=== PATIENT | female | born 1940 | race Caucasian/White ===

== ENCOUNTER → 2018-02-21 10:13 | Outpatient (CLI) | payer MEDICARE, OTHER, SELFPAY ==
--- NOTE | 2018-02-21 | DI.RAD.S_ITS ---
PROCEDURE: XR BONE LENGTH SCANOGRAM INDICATIONS: 77 year-old female with chronic low back pain. TECHNIQUE: A single frontal standing view of both lower extremities acquired, with measuring ruler situated between the legs. COMPARISON: None. FINDINGS: Right: Total leg length is 94.9 cm. There is moderate genu valgus. There is mild lateral femorotibial compartment knee joint degeneration. Left: Total leg length is 94.9 cm. There is mild genu valgus. IMPRESSION: 1. No leg length discrepancy. 2. Moderate right and mild left valgus alignment of the knee joints. Dictated by: Ezio Theodore M.D. on 02/21/2018 at 11:48 Approved by: Ezio Theodore M.D. on 02/21/2018 at 11:51
== END ==
PROVIDERS: Family Provider Internal Medicine; PCP Internal Medicine; Visit Provider Chiropractor
DX: M54.5 Low back pain (principal); G89.29 Other chronic pain; M21.062 Valgus deformity, not elsewhere classified, left knee; M21.061 Valgus deformity, not elsewhere classified, right knee
CPT/HCPCS: 77073

== ENCOUNTER → 2019-11-15 15:41 | Outpatient (CLI) | payer MEDICARE, OTHER, SELFPAY ==
--- NOTE | 2019-11-15 | DI.RAD.S_ITS ---
PROCEDURE: XR FOOT LT MIN 3V INDICATIONS: deformity foot TECHNIQUE: 3 views of the foot were acquired. COMPARISON: [facility], , XR FOOT RT MIN 3V, 11/15/2019, 15:18. FINDINGS: Bones: No fractures or dislocations. No suspicious bony lesions. Mild first MTP joint degeneration. Diffuse interphalangeal degenerative joint disease. Soft tissues: No tibiotalar joint effusion. Achilles tendon appears normal. IMPRESSION: Chronic degenerative changes as above No fracture Dictated by: Guido Lerma M.D. on 11/15/2019 at 16:43 Approved by: Guido Lerma M.D. on 11/15/2019 at 16:46
--- NOTE | 2019-11-15 | DI.RAD.S_ITS ---
PROCEDURE: XR KNEE RT 3V INDICATIONS: BI KNEES AND BI FEET TECHNIQUE: 3 views of the knee were acquired. COMPARISON: None. FINDINGS: Bones: No fractures or dislocations. No suspicious bony lesions. Scattered degenerative subchondral sclerosis and spurring. Mild tricompartmental joint space narrowing. Bulky osteophyte formation at the lateral compartment Soft tissues: Small joint effusion. No suspicious soft tissue calcifications. IMPRESSION: Mild-moderate right knee joint degeneration Dictated by: Guido Lerma M.D. on 11/15/2019 at 16:46 Approved by: Guido Lerma M.D. on 11/15/2019 at 16:47
--- NOTE | 2019-11-15 | DI.RAD.S_ITS ---
PROCEDURE: XR KNEE LT 3V INDICATIONS: BI KNEES AND BI FEET TECHNIQUE: 3 views of the knee were acquired. COMPARISON: None. FINDINGS: Bones: No fractures or dislocations. No suspicious bony lesions. Scattered degenerative subchondral sclerosis and spurring. Mild medial and lateral joint space narrowing. Mild patellar femoral joint space narrowing Soft tissues: No joint effusion. No suspicious soft tissue calcifications. IMPRESSION: Mild left knee joint degeneration Dictated by: Guido Lerma M.D. on 11/15/2019 at 16:42 Approved by: Guido Lerma M.D. on 11/15/2019 at 16:43
--- NOTE | 2019-11-15 | DI.RAD.S_ITS ---
PROCEDURE: XR FOOT RT MIN 3V INDICATIONS: deformity foot TECHNIQUE: 4 views of the foot were acquired. COMPARISON: None. FINDINGS: Bones: Osteoarthritic changes are noted throughout mid foot and forefoot joints particularly involving first and second TMT joints and first MTP joint. No fractures or dislocations. No suspicious bony lesions. Soft tissues: Mild soft tissue swelling over medial aspect of first MTP joint is seen. Mild soft tissue swelling over medial and dorsal aspect of first TMT joint is also noted. No tibiotalar joint effusion. Achilles tendon appears normal. IMPRESSION: Osteoarthritic changes dominal involving medial portion of the midfoot and forefoot as above. No acute fracture or dislocation. Dictated by: Porter Gomez M.D. on 11/15/2019 at 16:33 Approved by: Porter Gomez M.D. on 11/15/2019 at 16:39
== END ==
PROVIDERS: Family Provider Internal Medicine; PCP Internal Medicine; Referring Provider Family Medicine; Visit Provider Family Medicine
DX: M17.0 Bilateral primary osteoarthritis of knee (principal); M19.072 Primary osteoarthritis, left ankle and foot; M21.41 Flat foot [pes planus] (acquired), right foot
CPT/HCPCS: 73562; 73630

== ENCOUNTER 2022-01-29 13:00 | Outpatient (RCR) | payer MEDICARE, OTHER, SELFPAY ==
--- NOTE | 2021-12-23 16:45 | PT.OIE ---
Current Diagnoses Other specified arthritis, right knee (12/23/21) Bilateral primary osteoarthritis of knee (12/23/21) Osteoarthritis of knee, unspecified (12/23/21) Primary osteoarthritis, right ankle and foot (12/23/21) Primary osteoarthritis, left ankle and foot (12/23/21) Valgus deformity, not elsewhere classified, left knee (12/23/21) Valgus deformity, not elsewhere classified, unspecified knee (12/23/21) Flat foot [pes planus] (acquired), right foot (12/23/21) Unspecified acquired deformity of right lower leg (12/23/21) Unspecified acquired deformity of left lower leg (12/23/21) Low back pain, unspecified (12/23/21) Congenital deformity of feet, unspecified, unspecified foot (12/23/21) Visit Care Team Role Provider Type Sabrina Garcia PA-C Referring Provider Non-Staff Specialty: Medical Address: [address] [place] [address], [id number] Email: Leonardo Villafuerte DO Primary Care Provider Non-Staff Specialty: Family Practice Address: [address] [place] [address], [id number] Email: Adin Mcqueen MD Family Provider Physician Specialty: Internal Medicine Address: [address] [place] [address], [address], [id number] Email: [email or web address] AMY Comer Attending Provider Non-Staff Specialty: Family Practice Address: [address] [place] [address], [facility] [place] Email: Physical Therapy Initial Evaluation PT-OP-A Visit Information Start: 12/12/21 17:39 Freq: Status: Active Protocol: Document 12/23/21 11:23 LRN (Rec: 12/23/21 12:22 LRN [id number]) Out-Patient Physical Therapy Visit Information Visit Information Visit Type Initial Evaluation Visit Start Time 11:23 Visit Stop Time 12:20 Total Visit Minutes 57 Visit Number 1 Evaluation Information Evaluation Date 12/23/21 Precautions Precautions Arthritis, lumbar back pain, hypothyroid controlled with meds. PT-OP-B Current Condition Start: 12/12/21 17:39 Freq: Status: Active Protocol: Document 12/23/21 11:23 LRN (Rec: 12/23/21 12:22 LRN [id number]) Current Condition History of Current Condition Onset Date 2 yrs ago Current Complaints Blister/callus on R foot arch, causing R swann and core extruder knee pain History of Current Condition Pt reports arch fell in R foot 2 yrs ago, then the knee started to hurt (collapsing inward). Can now control the knee because she built her own support. She feels because the L leg is crooked it caused problems with the R foot. No problem with R foot pain unless standing. She doesn't feel her back pain is problem currently. She states she has had a lot of back pain through her life because her back is curved. She was wearing a soft back brace she purchased ([employer] soft brace) that she is not sure she likes, so she is waiting for another one order in the mail. Pt is primarily concerned of her feet and LE's. Prior Treatments and Tests Has tried different orthotics by several podiatrists. [facility] issued an orthotic with high ankle support but she couldn't wear it because it wasn't soft. 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 Future Testing and Treatments Planned Go back to [facility] to make something soft and lifted at the arch. Treatment Goals Patient/Caregiver Goals Wants to stabilize foot ( strengthen) and work on movement of hips due to R knee going in and collapse of arch in R foot. Prior Functional Status Baseline Function- ADL's Independent Baseline Function- Mobility Independent Baseline Function- Recreation/Hobbies Riding upright ex bike. Does trampoline exs, Does ball and weight exercise. Baseline Function- Other Does yardwork. Current Functional Impairments (Reported) Functional Limitations- ADL's Walks more slowly because it hurts to move feet (quick rotational turns). Functional Limitations- Mobility/Gait Not able to walk or hike. Functional Limitations- Recreation/ Stopped doing gym classes ( Hobbies weights, stand up ex's: lunges , squats, moving left & right) Personal Factors Other Personal Factors That May Effect Trying to get R AFO and a more Therapy/Recovery comfortable plantar arch support. Stomach problems affecting bladder, which limits her ability to walk. PT-OP-C Subjective Start: 12/12/21 17:39 Freq: Status: Active Protocol: Document 12/23/21 11:23 LRN (Rec: 12/23/21 12:22 LRN [id number]) Patient Questionnaires Foot & Ankle Ability Measure- ADL and Sports FAAM-ADL Score 52 FAAM-ADL Impairment 20 to 39% Impaired (Score 50- 66) Lower Extremity Functional Scale LEFS Score 48 LEFS Impairment 20 to 39% Impaired (Score 48- 62) OP-PT Pain Assessment Pain Assessment Grid Paper Pain Assessment Grid Completed Yes Location R foot Pain Location Details Pain at plantar aspect of foot Radiating Location With weightbearing PT-OP-J Posture/Palpation/Skin Start: 12/12/21 17:39 Freq: Status: Active Protocol: Document 12/23/21 11:23 LRN (Rec: 12/23/21 12:22 LRN [id number]) Posture Evaluation Position Standing Head/C-Spine Posture Forward Head Knee Posture (L) Genu Valgus,(R) Genu Valgus Ankle/Foot Posture (R) Pronated,(R) Calcaneal Inversion Foot Arch (L) Low Arch,(R) No Arch Comments Posture Comments Severe forward head, R shoulder retracted, increased lordosis, Knee valgus angle is 27 deg's right, 5 deg's left. PT-OP-K Range of Motion Start: 12/12/21 17:39 Freq: Status: Active Protocol: Document 12/23/21 11:23 LRN (Rec: 12/23/21 12:22 LRN [id number]) Hip Goniometric Range of Motion Hip Right Passive Hip ROM WFL No Straight Leg Raise 80 Abduction 10 Internal Rotation 25 External Rotation 15 Comments Extension lacks 5 deg's Left Passive Hip ROM WFL Yes Straight Leg Raise 90 Abduction 16 Internal Rotation 10 External Rotation 0 Comments Extension lacks 3 deg's Knee Goniometric Range of Motion Knee Right Knee ROM WFL No Patient Position Supine Flexion Active (degrees) 125 Extension Active (degrees) 16 Left Knee ROM WFL No Patient Position Supine Flexion Active (degrees) 131 Extension Active (degrees) 5 Ankle and Foot Goniometric Range of Motion Ankle and Foot Right Active Dorsiflexion with Knee Extended 7 Plantarflexion 43 Inversion 35 Eversion 30 Left Active Dorsiflexion with Knee Extended 7 Plantarflexion 60 Inversion 40 Eversion 32 PT-OP-M Strength Start: 12/12/21 17:39 Freq: Status: Active Protocol: Document 12/23/21 11:23 LRN (Rec: 12/23/21 12:22 LRN [id number]) Hip Strength Hip Manual Muscle Testing Right Flexion (L2) 5 Normal Extension (S1) 3 Fair Abduction 3- Fair- Adduction 5 Normal Left Flexion (L2) 5 Normal Extension (S1) 3 Fair Abduction 5 Normal Knee Strength Knee Manual Muscle Testing Right Flexion (S2) 3 Fair Extension (L3) 5 Normal Left Flexion (S2) 5 Normal Extension (L3) 5 Normal Ankle/Foot Strength Ankle and Foot Manual Muscle Testing Right Comments Generally 5/5 Left Comments Generally 5/5 PT-OP-Q Treatments Start: 12/12/21 17:39 Freq: Status: Active Protocol: Document 12/23/21 11:23 LRN (Rec: 12/23/21 12:22 LRN [id number]) Self-Care/Home Management Treatment Education Patient Education Joint Protection Other Education Discussed results of evaluation, goals, and plan of care (POC). Pt agreeable to goals and POC. Educated pt in potential for use of an offloading brace for her R knee for support and limiting valgus of the knee. PT-OP-T Assessment and Plan Start: 12/12/21 17:39 Freq: Status: Active Protocol: Document 12/23/21 11:23 LRN (Rec: 12/23/21 12:22 LRN [id number]) Physical Therapy Assessment Rehab Potential Rehabilitation Potential Fair Evaluation Complexity Number of Personal Factors/Comorbidities 1-2 Number of Body Systems Impaired 4 or More Clinical Presentation at Evaluation Evolving Impairments Impairments Activity Tolerance,Balance, Gait,Pain,Posture,ROM,Strength Goals Three Impairment Improve hip mobility & strength to improve stability with gait Impairment LEFS is 48/80 (20-39% impaired , score 48-62) FAAM score is 52 (20-39% impaired, 50-66) Hip strength: AB is 3-/5 R, 5/ 5 L. Hip PROM (sup) in deg's: Ext is lacking 5 deg's R, lacking 3 deg's L; AB is 10 R, 16 L; IR is 25 R, 10 L, ER is 15 R, 0 L Short Term Goal (STG) Pt will be educated in a HEP of hip mobility (Ext, AB, IR, ER) and strengthening ex's (AB , AD, ext). STG Duration 01/20/22 Catering Barista Goal (LTG) Improve strength and mobility of the hips with improved function per LEFS or FAAM score. LTG Duration 03/23/22 Two Impairment Improve knee strength & mobility to decrease R knee pain. Impairment Knee flexion - 3/5 R, 5/5 L; Extension is 5/5 bilaterally Knee AROM (sup) in deg's: 16- 125 right, 5-131 left. Short Term Goal (STG) Pt will be educated in a HEP of knee mobility (ext, R flex) and strengthening (R hamstring, medial>lateral) exercises. STG Duration 01/20/22 Catering Barista Goal (LTG) Decrease R knee pain with gait with improved knee strength and external support of R arch support and/or offloading knee brace. LTG Duration 03/23/22 One Impairment Lacks appropriate self care program. Short Term Goal (STG) Assist pt in obtaining an offloading brace for the R knee. STG Duration 01/16/22 Catering Barista Goal (LTG) Pt will be independent in a self care HEP to improve stability of the foot with strengthening exercise. LTG Duration 03/23/22 Assessment Summary Assessment Pt presents with obvious mechanical dysfunction of her R foot and bilateral knees, R> L. The pt's primary complaint is pain at the R foot causing her R knee to move into a valgus position and affecting her safe ability to turn around in her kitchen. She is currently working with a local pest control chemical technician to build a more comfortable plantar arch support for her R foot to support her ankle. In standing, the pt has a severe valgus of the R knee of 27 deg 's when weight bearing, and 5 deg's left. Pt might benefit from an Offloader knee brace to limit valgus at the R knee and reduce stress on the plantar aspect of the foot . The patient was very concerned about her LE strength and mobility; therefore specific assesment of her gait was deferred and will be assessed at her next visit. She has notable weakness of her hips and R hamstrings, but her ankle strength is good. Mobility is limited in her hips except for PSLR which the pt stretches daily. She lacks full knee extension and is limited with R knee flexion. Her ankle mobility is surprisingly quite good. She is slower than normal with 360 degree turning, but was able to perform the movement safely in both directions. The pt will benefit from skilled physical therapy to improve LE mobility & strength, gait & balance training, assisting pt in obtaining an offloader brace for the R knee and educating the pt on a HEP. Physical Therapy Plan Frequency and Duration Frequency of Treatment 2x/Week Plan of Care Start Date 12/23/21 Plan of Care End Date 03/23/22 Therapeutic Interventions Therapeutic Interventions Aquatic Therapy,Balance Training,Gait Training,Home Exercise Program,Manual Therapy,Neuromuscular Re- education,Patient/Caregiver Education,Self-Care/Home Management,Soft Tissue Mobilization,Therapeutic Activities,Therapeutic Exercises Modalities Cold Pack/Ice Massage,Hot Packs,Ultrasound Other Referrals/Consults Referrals/Consults Recommended Recommend a referral for an Offloader knee brace to limit valgus at the R knee and reduce stress on the plantar aspect of the foot. Next Visit Focus/Plan Next Note Type Treatment Note Next Visit Plan Gait and balance assessment. Discuss pool therapy Capo Hip strengthening (AB/AD/ Ext), R knee strengthening ( flex), core strengthening and as tolerated also in standing . ROM ex: capo hip ER/IR/AB; capo knee ext (R>L) and R knee flexion. General conditioning, possible use of lift to deweight R foot.
--- NOTE | 2021-12-23 16:45 | PT.OPPOC ---
Physical, Occupational & Speech Therapy At 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), right foot (12/23/21) Unspecified acquired deformity of right lower leg (12/23/21) Unspecified acquired deformity of left lower leg (12/23/21) Low back pain, unspecified (12/23/21) Congenital deformity of feet, unspecified, unspecified foot (12/23/21) Visit Care Team Role Provider Type Sabrina Garcia PA-C Referring Provider Non-Staff Specialty: Medical Address: [address] [place] [address], [id number] Email: Leonardo Villafuerte DO Primary Care Provider Non-Staff Specialty: Family Practice Address: [address] [place] [address], [address] Email: Adin Mcqueen MD Family Provider Physician Specialty: Internal Medicine Address: [address] [place] [address], [address], [address] Email: [email or web address] [email or web address] Comer Attending Provider Non-Staff Specialty: Family Practice Address: [address] [place] [address], [id number] Email: Plan Of Care PT-OP-T Assessment and Plan Start: 12/12/21 17:39 Freq: Status: Active Protocol: Document 12/23/21 11:23 LRN (Rec: 12/23/21 12:22 LRN [id number]) Physical Therapy Assessment Rehab Potential Rehabilitation Potential Fair Evaluation Complexity Number of Personal Factors/Comorbidities 1-2 Number of Body Systems Impaired 4 or More Clinical Presentation at Evaluation Evolving Impairments Impairments Activity Tolerance,Balance, Gait,Pain,Posture,ROM,Strength Goals Three Impairment Improve hip mobility & strength to improve stability with gait Impairment LEFS is 48/80 (20-39% impaired , score 48-62) FAAM score is 52 (20-39% impaired, 50-66) Hip strength: AB is 3-/5 R, 5/ 5 L. Hip PROM (sup) in deg's: Ext is lacking 5 deg's R, lacking 3 deg's L; AB is 10 R, 16 L; IR is 25 R, 10 L, ER is 15 R, 0 L Short Term Goal (STG) Pt will be educated in a HEP of hip mobility (Ext, AB, IR, ER) and strengthening ex's (AB , AD, ext). STG Duration 01/20/22 Assisted Goal (LTG) Improve strength and mobility of the hips with improved function per LEFS or FAAM score. LTG Duration 03/23/22 Two Impairment Improve knee strength & mobility to decrease R knee pain. Impairment Knee flexion - 3/5 R, 5/5 L; Extension is 5/5 bilaterally Knee AROM (sup) in deg's: 16- 125 right, 5-131 left. Short Term Goal (STG) Pt will be educated in a HEP of knee mobility (ext, R flex) and strengthening (R hamstring, medial>lateral) exercises. STG Duration 01/20/22 Assisted Goal (LTG) Decrease R knee pain with gait with improved knee strength and external support of R arch support and/or offloading knee brace. LTG Duration 03/23/22 One Impairment Lacks appropriate self care program. Short Term Goal (STG) Assist pt in obtaining an offloading brace for the R knee. STG Duration 01/16/22 Bottle Tester Goal (LTG) Pt will be independent in a self care HEP to improve stability of the foot with strengthening exercise. LTG Duration 03/23/22 Assessment Summary Assessment Pt presents with obvious mechanical dysfunction of her R foot and bilateral knees, R> L. The pt's primary complaint is pain at the R foot causing her R knee to move into a valgus position and affecting her safe ability to turn around in her kitchen. She is currently working with a local fish net stringer to build a more comfortable plantar arch support for her R foot to support her ankle. In standing, the pt has a severe valgus of the R knee of 27 deg 's when weight bearing, and 5 deg's left. Pt might benefit from an Offloader knee brace to limit valgus at the R knee and reduce stress on the plantar aspect of the foot . The patient was very concerned about her LE strength and mobility; therefore specific assesment of her gait was deferred and will be assessed at her next visit. She has notable weakness of her hips and R hamstrings, but her ankle strength is good. Mobility is limited in her hips except for PSLR which the pt stretches daily. She lacks full knee extension and is limited with R knee flexion. Her ankle mobility is surprisingly quite good. She is slower than normal with 360 degree turning, but was able to perform the movement safely in both directions. The pt will benefit from skilled physical therapy to improve LE mobility & strength, gait & balance training, assisting pt in obtaining an offloader brace for the R knee and educating the pt on a HEP. Physical Therapy Plan Frequency and Duration Frequency of Treatment 2x/Week Plan of Care Start Date 12/23/21 Plan of Care End Date 03/23/22 Therapeutic Interventions Therapeutic Interventions Aquatic Therapy,Balance Training,Gait Training,Home Exercise Program,Manual Therapy,Neuromuscular Re- education,Patient/Caregiver Education,Self-Care/Home Management,Soft Tissue Mobilization,Therapeutic Activities,Therapeutic Exercises Modalities Cold Pack/Ice Massage,Hot Packs,Ultrasound Other Referrals/Consults Referrals/Consults Recommended Recommend a referral for an Offloader knee brace to limit valgus at the R knee and reduce stress on the plantar aspect of the foot. Next Visit Focus/Plan Next Note Type Treatment Note Next Visit Plan Gait and balance assessment. Discuss pool therapy Capo Hip strengthening (AB/AD/ Ext), R knee strengthening ( flex), core strengthening and as tolerated also in standing . ROM ex: capo hip ER/IR/AB; capo knee ext (R>L) and R knee flexion. General conditioning, possible use of lift to deweight R foot. Plan of Care Dates Plan of Care Start Date 12/23/21 Plan of Care End Date 03/23/22 Electronically Signed by: Camille Burris, PT 12/25/21 0525 If you are in agreement with this Plan of Care, please return a signed and dated copy. I have reviewed this Plan of Care and certify that the skilled therapy services above are required to meet the patient?s needs. Physician Signature Date Printed Name and Credentials Clinical Instructor Signature Printed Name and Credentials
--- NOTE | 2021-12-26 12:36 | PT.OTN ---
Current Diagnoses Other specified arthritis, right knee (12/26/21) Bilateral primary osteoarthritis of knee (12/26/21) Osteoarthritis of knee, unspecified (12/26/21) Primary osteoarthritis, right ankle and foot (12/26/21) Primary osteoarthritis, left ankle and foot (12/26/21) Valgus deformity, not elsewhere classified, left knee (12/26/21) Valgus deformity, not elsewhere classified, unspecified knee (12/26/21) Flat foot [pes planus] (acquired), right foot (12/26/21) Unspecified acquired deformity of right lower leg (12/26/21) Unspecified acquired deformity of left lower leg (12/26/21) Low back pain, unspecified (12/26/21) Congenital deformity of feet, unspecified, unspecified foot (12/26/21) Physical Therapy Treatment Note PT-OP-A Visit Information Start: 12/12/21 17:39 Freq: Status: Active Protocol: Document 12/26/21 11:24 LRN (Rec: 12/26/21 12:35 LRN [id number]) Out-Patient Physical Therapy Visit Information Visit Information Visit Type Treatment Note Visit Start Time 11:24 Visit Stop Time 12:10 Total Visit Minutes 46 Visit Number 2 Evaluation Information Evaluation Date 12/23/21 Precautions Precautions Arthritis, lumbar back pain, hypothyroid controlled with meds. 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 Can now control the knee because she built her own support. She feels because the L leg is crooked it caused problems with the R foot. No problem with R foot pain unless standing. She doesn't feel her back pain is problem currently. She states she has had a lot of back pain through her life because her back is curved. She was wearing a soft back brace she purchased ([employer] brace) that she is not sure she likes, so she is waiting for another one order in the mail. Pt is primarily concerned of her feet and LE's. Prior Treatments and Tests Has tried different orthotics by several podiatrists. [facility] issued an orthotic with high ankle support but she couldn't wear it because it wasn't soft. 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 Future Testing and Treatments Planned Go back to [facility] to make something soft and lifted at the arch. Treatment Goals Patient/Caregiver Goals Wants to stabilize foot ( strengthen) and work on movement of hips due to R knee going in and collapse of arch in R foot. Prior Functional Status Baseline Function- ADL's Independent Baseline Function- Mobility Independent Baseline Function- Recreation/Hobbies Riding upright ex bike. Does trampoline exs, Does ball and weight exercise. Baseline Function- Other Does yardwork. Current Functional Impairments (Reported) Functional Limitations- ADL's Walks more slowly because it hurts to move feet (quick rotational turns). Functional Limitations- Mobility/Gait Not able to walk or hike. Functional Limitations- Recreation/ Stopped doing gym classes ( Hobbies weights, stand up ex's: lunges , squats, moving left & right) Personal Factors Other Personal Factors That May Effect Trying to get R AFO and a more Therapy/Recovery comfortable plantar arch support. Stomach problems affecting bladder, which limits her ability to walk. PT-OP-C Subjective Start: 12/12/21 17:39 Freq: Status: Active Protocol: Document 12/26/21 11:24 LRN (Rec: 12/26/21 12:35 LRN [id number]) OP-PT Subjective Patient Comments Patient Comments States she adjusted her insole and added a toe peice; therefore feels she can walk better and has no R foot or knee pain. OP-PT Pain Assessment Pain Assessment Grid Paper Pain Assessment Grid Completed No Location R knee Pain Location Details Medial L knee pain. Intensity 0 R foot Pain Location Details Pain at plantar aspect of foot Intensity 0 Radiating Location With weightbearing PT-OP-D Balance Start: 12/12/21 17:39 Freq: Status: Active Protocol: Document 12/26/21 11:24 LRN (Rec: 12/26/21 12:35 LRN [id number]) Roth Balance Assessment Evaluation Sitting to Standing Ability Independent w/out Hands Unsupported Stance Safely- 2 minutes Sitting Unsupported, Feet on Floor Safely- 2 minutes Standing to Sitting Ability Safely, Minimal Hand Use Transfer Ability Safely, Minimal Hand Use Unsupported Stance- Eyes Closed Safely, 10 seconds Unsupported Stance- Eyes Open Independent, 1 minute Reaching Forward Standing Safely, 5 inches Pick- Up Object From Floor Independent/Safe Look Behind Shoulder - Standing Turns Sideways Only Turning 360 Degrees Turns slowly, but safely Unsupported Stance, Alternating Feet on (I)- 8 Steps in 20 secs Stair Unsupported Tandem Stance Assist to Step-15 seconds Unilateral Leg Stance Unable,assist to not fall Total Score Roth Total Score (out of 56 points) 44 Roth Impairment Rating 20 to 39% Impaired (Score 34- 44) PT-OP-E Functional Tests Start: 12/12/21 17:39 Freq: Status: Active Protocol: Document 12/26/21 11:24 LRN (Rec: 12/26/21 12:35 LRN [id number]) Functional Tests Timed Up and Go (TUG) Score 13 TUG Impairment Rating 20 to <40% Impaired (Score 12- 13) PT-OP-G Mobility & Gait Start: 12/12/21 17:39 Freq: Status: Active Protocol: Document 12/26/21 11:24 LRN (Rec: 12/26/21 12:35 LRN [id number]) OP Gait Assessment Gait Gait Assistance Required: Independent Able to Maintain Weight Bearing Status Yes During Gait Assistive Devices Assistive Device None Factors Limiting Gait Function Factors Limiting Gait Function Limited Range of Motion Comments Gait Comments Severe valgus of the R knee, and R foot pronation is the limiting factor in the pt's gait deviation. PT-OP-J Posture/Palpation/Skin Start: 12/12/21 17:39 Freq: Status: Active Protocol: Document 12/23/21 11:23 LRN (Rec: 12/23/21 12:22 LRN [id number]) Posture Evaluation Position Standing Head/C-Spine Posture Forward Head Knee Posture (L) Genu Valgus,(R) Genu Valgus Ankle/Foot Posture (R) Pronated,(R) Calcaneal Inversion Foot Arch (L) Low Arch,(R) No Arch Comments Posture Comments Severe forward head, R shoulder retracted, increased lordosis, Knee valgus angle is 27 deg's right, 5 deg's left. PT-OP-K Range of Motion Start: 12/12/21 17:39 Freq: Status: Active Protocol: Document 12/23/21 11:23 LRN (Rec: 12/23/21 12:22 LRN [id number]) Hip Goniometric Range of Motion Hip Right Passive Hip ROM WFL No Straight Leg Raise 80 Abduction 10 Internal Rotation 25 External Rotation 15 Comments Extension lacks 5 deg's Left Passive Hip ROM WFL Yes Straight Leg Raise 90 Abduction 16 Internal Rotation 10 External Rotation 0 Comments Extension lacks 3 deg's Knee Goniometric Range of Motion Knee Right Knee ROM WFL No Patient Position Supine Flexion Active (degrees) 125 Extension Active (degrees) 16 Left Knee ROM WFL No Patient Position Supine Flexion Active (degrees) 131 Extension Active (degrees) 5 Ankle and Foot Goniometric Range of Motion Ankle and Foot Right Active Dorsiflexion with Knee Extended 7 Plantarflexion 43 Inversion 35 Eversion 30 Left Active Dorsiflexion with Knee Extended 7 Plantarflexion 60 Inversion 40 Eversion 32 PT-OP-M Strength Start: 12/12/21 17:39 Freq: Status: Active Protocol: Document 12/23/21 11:23 LRN (Rec: 12/23/21 12:22 LRN [id number]) Hip Strength Hip Manual Muscle Testing Right Flexion (L2) 5 Normal Extension (S1) 3 Fair Abduction 3- Fair- Adduction 5 Normal Left Flexion (L2) 5 Normal Extension (S1) 3 Fair Abduction 5 Normal Knee Strength Knee Manual Muscle Testing Right Flexion (S2) 3 Fair Extension (L3) 5 Normal Left Flexion (S2) 5 Normal Extension (L3) 5 Normal Ankle/Foot Strength Ankle and Foot Manual Muscle Testing Right Comments Generally 5/5 Left Comments Generally 5/5 PT-OP-Q Treatments Start: 12/12/21 17:39 Freq: Status: Active Protocol: Document 12/26/21 11:24 LRN (Rec: 12/26/21 12:35 LRN [id number]) Therapeutic Exercises Sitting Exercises Ankle IV Sitting Exercise Name Ankle IV w/TBand - HEP Side bilateral Reps/Minutes 15x Comments Extra time to determine max tolerated resistance and positioning Ankle EV Sitting Exercise Name Ankle EV w/TBand - HEP Side bilateral Reps/Minutes 15x Comments Extra time to determine max tolerated resistance and positioning Ankle DF Sitting Exercise Name Ankle DF w/TBand - HEP Side bilateral Reps/Minutes 15x Comments Extra time to determine max tolerated resistance and positioning Therapeutic Activity Therapeutic Activity Transfer to different seat Name Chair>another chair Reps/Minutes 1x Comments Transfer training with and without use of UE's. Sit<>Stand Name Sit<>Stand Reps/Minutes 3x Comments Transfer training with and without use of UE's. Neuro Re-Education Treatment Balance Activities SLS Details SLS Equipment Gait belt Reps/Duration 3' Comments Left - 1 sec, not able to do on R side. Tandem stance Details Tandem stance, each foot behind Surface Level Equipment Gait belt Reps/Duration 2x Comments L foot behind - 30 max R foot behind - 6 max. Pt not able to position properly independently with v cuing; therefore phys assist needed to position heel-toe. Alternating foot on step Details Alternating foot on step one at a time. Equipment Gait belt Reps/Duration 8x 2 Comments Extra time for training for stability 360 deg turn Details Turning in place 360 deg's - bilaterally Surface Level Equipment Gait belt Reps/Duration 2x each Looking behind Details Looking behind bilaterally Surface Level Equipment Gait belt Reps/Duration 4x Reaching Details Reaching forward with R hand and to the ground. Surface Level Equipment Gait belt Reps/Duration 5' Comments Extra time for training for positioning. Reaching fwd 6.5 safely. Reaching to floor safely Standing EO/EC Details Standing EO ft together, EC feet normal stance Surface Level Equipment Gait belt Reps/Duration 3' Comments EO - 1+ minute safely EC - 10 secs safely Self-Care/Home Management Treatment Education Other Education Discussed possible use of a knee brace to off load the valgus mechanics of the R knee . Pt searched her phone for a brace PT-OP-T Assessment and Plan Start: 12/12/21 17:39 Freq: Status: Active Protocol: Document 12/26/21 11:24 LRN (Rec: 12/26/21 12:35 LRN [id number]) Physical Therapy Assessment Goals Three Impairment Improve hip mobility & strength to improve stability with gait Impairment LEFS is 48/80 (20-39% impaired , score 48-62) FAAM score is 52 (20-39% impaired, 50-66) Hip strength: AB is 3-/5 R, 5/ 5 L. Hip PROM (sup) in deg's: Ext is lacking 5 deg's R, lacking 3 deg's L; AB is 10 R, 16 L; IR is 25 R, 10 L, ER is 15 R, 0 L Short Term Goal (STG) Pt will be educated in a HEP of hip mobility (Ext, AB, IR, ER) and strengthening ex's (AB , AD, ext). STG Duration 01/20/22 Fdc Goal (LTG) Improve strength and mobility of the hips with improved function per LEFS or FAAM score. LTG Duration 03/23/22 Two Impairment Improve knee strength & mobility to decrease R knee pain. Impairment Knee flexion - 3/5 R, 5/5 L; Extension is 5/5 bilaterally Knee AROM (sup) in deg's: 16- 125 right, 5-131 left. Short Term Goal (STG) Pt will be educated in a HEP of knee mobility (ext, R flex) and strengthening (R hamstring, medial>lateral) exercises. STG Duration 01/20/22 Fdc Goal (LTG) Decrease R knee pain with gait with improved knee strength and external support of R arch support and/or offloading knee brace. LTG Duration 03/23/22 One Impairment Lacks appropriate self care program. Short Term Goal (STG) Assist pt in obtaining an offloading brace for the R knee. STG Duration 01/16/22 Fdc Goal (LTG) Pt will be independent in a self care HEP to improve stability of the foot with strengthening exercise. (12/26/21: HEP: ankle TB strengthening issued) LTG Duration 03/23/22 Progress Towards Goals Progress Comments Progressed HEP. Assessment Summary Assessment Per TUG pt is 20<40% impaired in stability with gait. She ambulates with assitive device with dysfunction of the R knee collapse on weightbearing . Today the pt reports no pain with walking due to adjustments she made in her insole, making her reportedly more stable with gait. She is willing to research use of an offloading R knee brace to prevent further arthritic changes in her knee, but is not wanting to become encumbered by a heavy knee brace. Her balance is 20-39% impaired due to primarily standing balance of EC and when single limb stance is required. Her forward reaching balance ability is also limited. The pt is very open to learning new exercises and appeared to have a fair understanding of ankle ex's, even after repeated training. Further review may be needed. Physical Therapy Plan Frequency and Duration Frequency of Treatment 2x/Week Plan of Care Start Date 12/23/21 Plan of Care End Date 03/23/22 Next Visit Focus/Plan Next Note Type Treatment Note Next Visit Plan Discuss pool therapy and use of offloading brace. Will contact MD if pt is willing to use. Add: Evans Hip strengthening ( AB/AD/Ext), R knee strengthening (flex), core strengthening and as tolerated also in standing. ROM ex: evans hip ER/IR/AB; evans knee ext (R>L) and R knee flexion. General conditioning, possible use of lift to deweight R foot.
--- NOTE | 2022-01-02 12:13 | PT.OTN ---
Current Diagnoses Other specified arthritis, right knee (01/02/22) Bilateral primary osteoarthritis of knee (01/02/22) Osteoarthritis of knee, unspecified (01/02/22) Primary osteoarthritis, right ankle and foot (01/02/22) Primary osteoarthritis, left ankle and foot (01/02/22) Valgus deformity, not elsewhere classified, left knee (01/02/22) Valgus deformity, not elsewhere classified, unspecified knee (01/02/22) Flat foot [pes planus] (acquired), right foot (01/02/22) Unspecified acquired deformity of right lower leg (01/02/22) Unspecified acquired deformity of left lower leg (01/02/22) Low back pain, unspecified (01/02/22) Congenital deformity of feet, unspecified, unspecified foot (01/02/22) Physical Therapy Treatment Note PT-OP-A Visit Information Start: 12/12/21 17:39 Freq: Status: Active Protocol: Document 01/02/22 11:18 LRN (Rec: 01/02/22 12:10 LRN [id number]) Out-Patient Physical Therapy Visit Information Visit Information Visit Type Treatment Note Visit Start Time 11:18 Visit Stop Time 11:58 Total Visit Minutes 40 Visit Number 3 Evaluation Information Evaluation Date 12/23/21 Precautions Precautions Arthritis, lumbar back pain, hypothyroid controlled with meds. 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 Can now control the knee because she built her own support. She feels because the L leg is crooked it caused problems with the R foot. No problem with R foot pain unless standing. She doesn't feel her back pain is problem currently. She states she has had a lot of back pain through her life because her back is curved. She was wearing a soft back brace she purchased (Teranode brace) that she is not sure she likes, so she is waiting for another one order in the mail. Pt is primarily concerned of her feet and LE's. Prior Treatments and Tests Has tried different orthotics by several podiatrists. [facility] issued an orthotic with high ankle support but she couldn't wear it because it wasn't soft. 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 Future Testing and Treatments Planned Go back to [facility] to make something soft and lifted at the arch. Treatment Goals Patient/Caregiver Goals Wants to stabilize foot ( strengthen) and work on movement of hips due to R knee going in and collapse of arch in R foot. Prior Functional Status Baseline Function- ADL's Independent Baseline Function- Mobility Independent Baseline Function- Recreation/Hobbies Riding upright ex bike. Does trampoline exs, Does ball and weight exercise. Baseline Function- Other Does yardwork. Current Functional Impairments (Reported) Functional Limitations- ADL's Walks more slowly because it hurts to move feet (quick rotational turns). Functional Limitations- Mobility/Gait Not able to walk or hike. Functional Limitations- Recreation/ Stopped doing gym classes ( Hobbies weights, stand up ex's: lunges , squats, moving left & right) Personal Factors Other Personal Factors That May Effect Trying to get R AFO and a more Therapy/Recovery comfortable plantar arch support. Stomach problems affecting bladder, which limits her ability to walk. PT-OP-C Subjective Start: 12/12/21 17:39 Freq: Status: Active Protocol: Document 01/02/22 11:18 LRN (Rec: 01/02/22 12:10 LRN [id number]) OP-PT Subjective Patient Comments Patient Comments States she bought online a knee brace, not the offloader brace. PT-OP-D Balance Start: 12/12/21 17:39 Freq: Status: Active Protocol: Document 12/26/21 11:24 LRN (Rec: 12/26/21 12:35 LRN [id number]) Roth Balance Assessment Evaluation Sitting to Standing Ability Independent w/out Hands Unsupported Stance Safely- 2 minutes Sitting Unsupported, Feet on Floor Safely- 2 minutes Standing to Sitting Ability Safely, Minimal Hand Use Transfer Ability Safely, Minimal Hand Use Unsupported Stance- Eyes Closed Safely, 10 seconds Unsupported Stance- Eyes Open Independent, 1 minute Reaching Forward Standing Safely, 5 inches Pick- Up Object From Floor Independent/Safe Look Behind Shoulder - Standing Turns Sideways Only Turning 360 Degrees Turns slowly, but safely Unsupported Stance, Alternating Feet on (I)- 8 Steps in 20 secs Stair Unsupported Tandem Stance Assist to Step-15 seconds Unilateral Leg Stance Unable,assist to not fall Total Score Roth Total Score (out of 56 points) 44 Roth Impairment Rating 20 to 39% Impaired (Score 34- 44) PT-OP-E Functional Tests Start: 12/12/21 17:39 Freq: Status: Active Protocol: Document 12/26/21 11:24 LRN (Rec: 12/26/21 12:35 LRN [id number]) Functional Tests Timed Up and Go (TUG) Score 13 TUG Impairment Rating 20 to <40% Impaired (Score 12- 13) PT-OP-G Mobility & Gait Start: 12/12/21 17:39 Freq: Status: Active Protocol: Document 12/26/21 11:24 LRN (Rec: 12/26/21 12:35 LRN [id number]) OP Gait Assessment Gait Gait Assistance Required: Independent Able to Maintain Weight Bearing Status Yes During Gait Assistive Devices Assistive Device None Factors Limiting Gait Function Factors Limiting Gait Function Limited Range of Motion Comments Gait Comments Severe valgus of the R knee, and R foot pronation is the limiting factor in the pt's gait deviation. PT-OP-J Posture/Palpation/Skin Start: 12/12/21 17:39 Freq: Status: Active Protocol: Document 12/23/21 11:23 LRN (Rec: 12/23/21 12:22 LRN [id number]) Posture Evaluation Position Standing Head/C-Spine Posture Forward Head Knee Posture (L) Genu Valgus,(R) Genu Valgus Ankle/Foot Posture (R) Pronated,(R) Calcaneal Inversion Foot Arch (L) Low Arch,(R) No Arch Comments Posture Comments Severe forward head, R shoulder retracted, increased lordosis, Knee valgus angle is 27 deg's right, 5 deg's left. PT-OP-K Range of Motion Start: 12/12/21 17:39 Freq: Status: Active Protocol: Document 12/23/21 11:23 LRN (Rec: 12/23/21 12:22 LRN [id number]) Hip Goniometric Range of Motion Hip Right Passive Hip ROM WFL No Straight Leg Raise 80 Abduction 10 Internal Rotation 25 External Rotation 15 Comments Extension lacks 5 deg's Left Passive Hip ROM WFL Yes Straight Leg Raise 90 Abduction 16 Internal Rotation 10 External Rotation 0 Comments Extension lacks 3 deg's Knee Goniometric Range of Motion Knee Right Knee ROM WFL No Patient Position Supine Flexion Active (degrees) 125 Extension Active (degrees) 16 Left Knee ROM WFL No Patient Position Supine Flexion Active (degrees) 131 Extension Active (degrees) 5 Ankle and Foot Goniometric Range of Motion Ankle and Foot Right Active Dorsiflexion with Knee Extended 7 Plantarflexion 43 Inversion 35 Eversion 30 Left Active Dorsiflexion with Knee Extended 7 Plantarflexion 60 Inversion 40 Eversion 32 PT-OP-M Strength Start: 12/12/21 17:39 Freq: Status: Active Protocol: Document 12/23/21 11:23 LRN (Rec: 12/23/21 12:22 [facility] [id number]) Hip Strength Hip Manual Muscle Testing Right Flexion (L2) 5 Normal Extension (S1) 3 Fair Abduction 3- Fair- Adduction 5 Normal Left Flexion (L2) 5 Normal Extension (S1) 3 Fair Abduction 5 Normal Knee Strength Knee Manual Muscle Testing Right Flexion (S2) 3 Fair Extension (L3) 5 Normal Left Flexion (S2) 5 Normal Extension (L3) 5 Normal Ankle/Foot Strength Ankle and Foot Manual Muscle Testing Right Comments Generally 5/5 Left Comments Generally 5/5 PT-OP-Q Treatments Start: 12/12/21 17:39 Freq: Status: Active Protocol: Document 01/02/22 11:18 LRN (Rec: 01/02/22 12:10 LR [id number]) Therapeutic Exercises Prone Exercises Hip Ext Prone Exercise Name Active Hip ext with ball at ankle for support Side bilateral Reps/Minutes 15x Comments Extra time needed to position for best tolerated position Sidelying Exercises Hip AD Sidelying Exercise Name Active Hip AD Side bilateral Reps/Minutes 15x Comments Extra time needed to position for best tolerated position Hip AB Sidelying Exercise Name Active Hip AB Side bilateral Reps/Minutes 15x Comments Extra time needed to position for best tolerated position Sitting Exercises Knee flex Sitting Exercise Name Knee flex strengthening Side right Equipment Used Lev 1 TB Reps/Minutes 5 H x 15 Ankle IV Sitting Exercise Name Ankle IV w/TBand - HEP Side bilateral Reps/Minutes 15x Comments Some extra time to determine max tolerated resistance and positioning Ankle EV Sitting Exercise Name Ankle EV w/TBand - HEP Side bilateral Reps/Minutes 15x 2 Comments Some extra time to determine max tolerated resistance and positioning Ankle DF Sitting Exercise Name Ankle DF w/TBand - HEP Side bilateral Reps/Minutes 30x Comments Some extra time to determine max tolerated resistance and positioning Self-Care/Home Management Treatment Education Patient Education Home Exercise Program Other Education Discussed aquatic therapy for her plan of care, but pt chose not to due to no pool in [place]. Activities Self-Care/Home Management Activities Evans Hip strengthening (AB/AD/ Ext), R knee strengthening ( flex) PT-OP-T Assessment and Plan Start: 12/12/21 17:39 Freq: Status: Active Protocol: Document 01/02/22 11:18 LRN (Rec: 01/02/22 12:10 LRN [id number]) Physical Therapy Assessment Goals Three Impairment Improve hip mobility & strength to improve stability with gait Impairment LEFS is 48/80 (20-39% impaired , score 48-62) FAAM score is 52 (20-39% impaired, 50-66) Hip strength: AB is 3-/5 R, 5/ 5 L. Hip PROM (sup) in deg's: Ext is lacking 5 deg's R, lacking 3 deg's L; AB is 10 R, 16 L; IR is 25 R, 10 L, ER is 15 R, 0 L Short Term Goal (STG) Pt will be educated in a HEP of hip mobility (Ext, AB, IR, ER) and strengthening ex's (AB , AD, ext). (01/02/22: Added HEP: hip strengthening ex for AB/AD/Ext ) STG Duration 01/20/22 (01/02/22: Progressed) [facility] Goal (LTG) Improve strength and mobility of the hips with improved function per LEFS or FAAM score. LTG Duration 03/23/22 Two Impairment Improve knee strength & mobility to decrease R knee pain. Impairment Knee flexion - 3/5 R, 5/5 L; Extension is 5/5 bilaterally Knee AROM (sup) in deg's: 16- 125 right, 5-131 left. Short Term Goal (STG) Pt will be educated in a HEP of knee mobility (ext, R flex) and strengthening (R hamstring, medial>lateral) exercises. (01/01/22: Added R knee flex strengthening with TB) STG Duration 01/20/22 (01/02/22: Progressed) [facility] Goal (LTG) Decrease R knee pain with gait with improved knee strength and external support of R arch support and/or offloading knee brace. LTG Duration 03/23/22 One Impairment Lacks appropriate self care program. Short Term Goal (STG) Assist pt in obtaining an offloading brace for the R knee. (01/02/22: Pt choosing not to obtain an offloaing brace at this time). STG Duration 01/16/22 (01/02/22: NOT MET, pt choosing not to get an offloading brace) Asp Net Programmer Goal (LTG) Pt will be independent in a self care HEP to improve stability of the foot with strengthening exercise. (12/26/21: HEP: ankle TB strengthening issued) LTG Duration 03/23/22 Progress Towards Goals Progress Comments Porgressed HEP Assessment Summary Assessment Pt tends to do hip ext with rotation of core, but improved movement of hips with training. R hip is very stiff with hip AB, possible mechanical block. and with R hip AD, the supportive LLE lacks hip AB/ER. R ankle IV/ DF is very weak. Physical Therapy Plan Frequency and Duration Frequency of Treatment 2x/Week Plan of Care Start Date 12/23/21 Plan of Care End Date 03/23/22 Next Visit Focus/Plan Next Note Type Treatment Note Next Visit Plan Will contact MD if pt is willing to use offloader knee brace. Discuss decreasing therapy to 1x/week with pt on HEP. Review: Evans Hip strengthening (AB/AD/Ext), R knee strengthening (flex), Add HEP: core strengthening and as tolerated also in standing. Add ROM HEPex: evans hip ER/IR/ AB; evans knee ext (R>L) and R knee flexion. General conditioning, possible use of lift to deweight R foot.
--- NOTE | 2022-01-06 12:22 | PT.OTN ---
Current Diagnoses Other specified arthritis, right knee (01/06/22) Bilateral primary osteoarthritis of knee (01/06/22) Osteoarthritis of knee, unspecified (01/06/22) Primary osteoarthritis, right ankle and foot (01/06/22) Primary osteoarthritis, left ankle and foot (01/06/22) Valgus deformity, not elsewhere classified, left knee (01/06/22) Valgus deformity, not elsewhere classified, unspecified knee (01/06/22) Flat foot [pes planus] (acquired), right foot (01/06/22) Unspecified acquired deformity of right lower leg (01/06/22) Unspecified acquired deformity of left lower leg (01/06/22) Low back pain, unspecified (01/06/22) Congenital deformity of feet, unspecified, unspecified foot (01/06/22) Physical Therapy Treatment Note PT-OP-A Visit Information Start: 12/12/21 17:39 Freq: Status: Active Protocol: Document 01/06/22 11:20 LRN (Rec: 01/06/22 12:21 LRN [id number]) Out-Patient Physical Therapy Visit Information Visit Information Visit Type Treatment Note Visit Start Time 11:20 Visit Stop Time 12:05 Total Visit Minutes 45 Evaluation Information Evaluation Date 12/23/21 Precautions Precautions Arthritis, lumbar back pain, hypothyroid controlled with meds. 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 Can now control the knee because she built her own support. She feels because the L leg is crooked it caused problems with the R foot. No problem with R foot pain unless standing. She doesn't feel her back pain is problem currently. She states she has had a lot of back pain through her life because her back is curved. She was wearing a soft back brace she purchased ([employer] soft brace) that she is not sure she likes, so she is waiting for another one order in the mail. Pt is primarily concerned of her feet and LE's. Prior Treatments and Tests Has tried different orthotics by several podiatrists. [facility] issued an orthotic with high ankle support but she couldn't wear it because it wasn't soft. 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 Future Testing and Treatments Planned Go back to [facility] to make something soft and lifted at the arch. Treatment Goals Patient/Caregiver Goals Wants to stabilize foot ( strengthen) and work on movement of hips due to R knee going in and collapse of arch in R foot. Prior Functional Status Baseline Function- ADL's Independent Baseline Function- Mobility Independent Baseline Function- Recreation/Hobbies Riding upright ex bike. Does trampoline exs, Does ball and weight exercise. Baseline Function- Other Does yardwork. Current Functional Impairments (Reported) Functional Limitations- ADL's Walks more slowly because it hurts to move feet (quick rotational turns). Functional Limitations- Mobility/Gait Not able to walk or hike. Functional Limitations- Recreation/ Stopped doing gym classes ( Hobbies weights, stand up ex's: lunges , squats, moving left & right) Personal Factors Other Personal Factors That May Effect Trying to get R AFO and a more Therapy/Recovery comfortable plantar arch support. Stomach problems affecting bladder, which limits her ability to walk. PT-OP-C Subjective Start: 12/12/21 17:39 Freq: Status: Active Protocol: Document 01/06/22 11:20 LRN (Rec: 01/06/22 12:21 LRN [id number]) OP-PT Subjective Patient Comments Patient Comments States due to her imbalance she droops forward and causes upper back pain. Wants to know what she can do to avoid back pain since she is forward bent so much to keep her balance. PT-OP-D Balance Start: 12/12/21 17:39 Freq: Status: Active Protocol: Document 12/26/21 11:24 LRN (Rec: 12/26/21 12:35 LRN [id number]) Orth Balance Assessment Evaluation Sitting to Standing Ability Independent w/out Hands Unsupported Stance Safely- 2 minutes Sitting Unsupported, Feet on Floor Safely- 2 minutes Standing to Sitting Ability Safely, Minimal Hand Use Transfer Ability Safely, Minimal Hand Use Unsupported Stance- Eyes Closed Safely, 10 seconds Unsupported Stance- Eyes Open Independent, 1 minute Reaching Forward Standing Safely, 5 inches Pick- Up Object From Floor Independent/Safe Look Behind Shoulder - Standing Turns Sideways Only Turning 360 Degrees Turns slowly, but safely Unsupported Stance, Alternating Feet on (I)- 8 Steps in 20 secs Stair Unsupported Tandem Stance Assist to Step-15 seconds Unilateral Leg Stance Unable,assist to not fall Total Score Roth Total Score (out of 56 points) 44 Roth Impairment Rating 20 to 39% Impaired (Score 34- 44) PT-OP-E Functional Tests Start: 12/12/21 17:39 Freq: Status: Active Protocol: Document 12/26/21 11:24 LRN (Rec: 12/26/21 12:35 LRN [id number]) Functional Tests Timed Up and Go (TUG) Score 13 TUG Impairment Rating 20 to <40% Impaired (Score 12- 13) PT-OP-G Mobility & Gait Start: 12/12/21 17:39 Freq: Status: Active Protocol: Document 12/26/21 11:24 LRN (Rec: 12/26/21 12:35 LRN [id number]) OP Gait Assessment Gait Gait Assistance Required: Independent Able to Maintain Weight Bearing Status Yes During Gait Assistive Devices Assistive Device None Factors Limiting Gait Function Factors Limiting Gait Function Limited Range of Motion Comments Gait Comments Severe valgus of the R knee, and R foot pronation is the limiting factor in the pt's gait deviation. PT-OP-J Posture/Palpation/Skin Start: 12/12/21 17:39 Freq: Status: Active Protocol: Document 12/23/21 11:23 LRN (Rec: 12/23/21 12:22 LRN [id number]) Posture Evaluation Position Standing Head/C-Spine Posture Forward Head Knee Posture (L) Genu Valgus,(R) Genu Valgus Ankle/Foot Posture (R) Pronated,(R) Calcaneal Inversion Foot Arch (L) Low Arch,(R) No Arch Comments Posture Comments Severe forward head, R shoulder retracted, increased lordosis, Knee valgus angle is 27 deg's right, 5 deg's left. PT-OP-K Range of Motion Start: 12/12/21 17:39 Freq: Status: Active Protocol: Document 04/26/22 11:23 LRN (Rec: 12/23/21 12:22 LRN [id number]) Hip Goniometric Range of Motion Hip Right Passive Hip ROM WFL No Straight Leg Raise 80 Abduction 10 Internal Rotation 25 External Rotation 15 Comments Extension lacks 5 deg's Left Passive Hip ROM WFL Yes Straight Leg Raise 90 Abduction 16 Internal Rotation 10 External Rotation 0 Comments Extension lacks 3 deg's Knee Goniometric Range of Motion Knee Right Knee ROM WFL No Patient Position Supine Flexion Active (degrees) 125 Extension Active (degrees) 16 Left Knee ROM WFL No Patient Position Supine Flexion Active (degrees) 131 Extension Active (degrees) 5 Ankle and Foot Goniometric Range of Motion Ankle and Foot Right Active Dorsiflexion with Knee Extended 7 Plantarflexion 43 Inversion 35 Eversion 30 Left Active Dorsiflexion with Knee Extended 7 Plantarflexion 60 Inversion 40 Eversion 32 PT-OP-M Strength Start: 12/12/21 17:39 Freq: Status: Active Protocol: Document 12/23/21 11:23 LRN (Rec: 12/23/21 12:22 LRN [id number]) Hip Strength Hip Manual Muscle Testing Right Flexion (L2) 5 Normal Extension (S1) 3 Fair Abduction 3- Fair- Adduction 5 Normal Left Flexion (L2) 5 Normal Extension (S1) 3 Fair Abduction 5 Normal Knee Strength Knee Manual Muscle Testing Right Flexion (S2) 3 Fair Extension (L3) 5 Normal Left Flexion (S2) 5 Normal Extension (L3) 5 Normal Ankle/Foot Strength Ankle and Foot Manual Muscle Testing Right Comments Generally 5/5 Left Comments Generally 5/5 PT-OP-Q Treatments Start: 12/12/21 17:39 Freq: Status: Active Protocol: Document 01/06/22 11:20 LRN (Rec: 01/06/22 12:21 LRN [id number]) Therapeutic Exercises Prone Exercises Hip Ext Prone Exercise Name Active Hip ext with ball at ankle for support Side bilateral Reps/Minutes 20x Comments Extra time needed to position for best tolerated position Sidelying Exercises Hip AD Sidelying Exercise Name Active Hip AD Side right Reps/Minutes 30x Comments Extra time needed to position for best tolerated position Hip AB Sidelying Exercise Name Active Hip AB Side bilateral Reps/Minutes 15x Comments Extra time needed to position for best tolerated position Self-Care/Home Management Treatment Education Other Education Postural training in standing/ sitting on/off CARLITA. Educated pt in ofloading knee brace and pt given printout on term offloading knee brace. Discussed at length different off loading knee braces at pt' s persistence. PT-OP-T Assessment and Plan Start: 12/12/21 17:39 Freq: Status: Active Protocol: Document 01/06/22 11:20 LRN (Rec: 01/06/22 12:21 LRN [id number]) Physical Therapy Assessment Goals Three Impairment Improve hip mobility & strength to improve stability with gait Impairment LEFS is 48/80 (20-39% impaired , score 48-62) FAAM score is 52 (20-39% impaired, 50-66) Hip strength: AB is 3-/5 R, 5/ 5 L. Hip PROM (sup) in deg's: Ext is lacking 5 deg's R, lacking 3 deg's L; AB is 10 R, 16 L; IR is 25 R, 10 L, ER is 15 R, 0 L Short Term Goal (STG) Pt will be educated in a HEP of hip mobility (Ext, AB, IR, ER) and strengthening ex's (AB , AD, ext). (01/02/22: Added HEP: hip strengthening ex for AB/AD/Ext ) STG Duration 01/20/22 (01/02/22: Progressed) Alf Goal (LTG) Improve strength and mobility of the hips with improved function per LEFS or FAAM score. LTG Duration 03/23/22 Two Impairment Improve knee strength & mobility to decrease R knee pain. Impairment Knee flexion - 3/5 R, 5/5 L; Extension is 5/5 bilaterally Knee AROM (sup) in deg's: 16- 125 right, 5-131 left. Short Term Goal (STG) Pt will be educated in a HEP of knee mobility (ext, R flex) and strengthening (R hamstring, medial>lateral) exercises. (01/01/22: Added R knee flex strengthening with TB) STG Duration 01/20/22 (01/02/22: Progressed) Expert Medical Writer Goal (LTG) Decrease R knee pain with gait with improved knee strength and external support of R arch support and/or offloading knee brace. (01/06/22: Pt is addressing her external R arch support issue through [facility]). LTG Duration 03/23/22 (01/06/22: Progressing) One Impairment Lacks appropriate self care program. Short Term Goal (STG) Assist pt in obtaining an offloading brace for the R knee. (01/02/22: Pt choosing not to obtain an offloaing brace at this time). STG Duration 01/16/22 (01/02/22: NOT MET, pt choosing not to get an offloading brace) Alf Goal (LTG) Pt will be independent in a self care HEP to improve stability of the foot with strengthening exercise. (12/26/21: HEP: ankle TB strengthening issued) LTG Duration 03/23/22 (01/06/22: Pt is on an ankle HEP) Assessment Summary Assessment Pt had good response to postural training in standing and cuing to keep eyes forward vs looking at feet while walking. Good recall of HEP strengthening. Physical Therapy Plan Frequency and Duration Frequency of Treatment 2x/Week Plan of Care Start Date 12/23/21 Plan of Care End Date 03/23/22 Next Visit Focus/Plan Next Note Type Treatment Note Next Visit Plan Will contact MD if pt is willing to use offloader knee brace. Decrease therapy to 1x/week when pt on HEP. Review postural training in standing with CARLITA. Add ROM HEP: capo hip ER/IR/AB; capo knee ext (R>L) and R knee flexion. Add HEP: foot & core strengthening and as tolerated also in standing. General conditioning, possible use of lift to deweight R foot.
--- NOTE | 2022-01-09 12:29 | PT.OTN ---
Current Diagnoses Other specified arthritis, right knee (01/09/22) Bilateral primary osteoarthritis of knee (01/09/22) Osteoarthritis of knee, unspecified (01/09/22) Primary osteoarthritis, right ankle and foot (01/09/22) Primary osteoarthritis, left ankle and foot (01/09/22) Valgus deformity, not elsewhere classified, left knee (01/09/22) Valgus deformity, not elsewhere classified, unspecified knee (01/09/22) Flat foot [pes planus] (acquired), right foot (01/09/22) Unspecified acquired deformity of right lower leg (01/09/22) Unspecified acquired deformity of left lower leg (01/09/22) Low back pain, unspecified (01/09/22) Congenital deformity of feet, unspecified, unspecified foot (01/09/22) Physical Therapy Treatment Note PT-OP-A Visit Information Start: 12/12/21 17:39 Freq: Status: Active Protocol: Document 01/09/22 11:21 LRN (Rec: 01/09/22 12:28 LRN [id number]) Out-Patient Physical Therapy Visit Information Visit Information Visit Type Treatment Note Visit Start Time 11:21 Visit Stop Time 12:05 Total Visit Minutes 44 Visit Number 5 Evaluation Information Evaluation Date 12/23/21 Precautions Precautions Arthritis, lumbar back pain, hypothyroid controlled with meds. 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 Can now control the knee because she built her own support. She feels because the L leg is crooked it caused problems with the R foot. No problem with R foot pain unless standing. She doesn't feel her back pain is problem currently. She states she has had a lot of back pain through her life because her back is curved. She was wearing a soft back brace she purchased ([employer] brace) that she is not sure she likes, so she is waiting for another one order in the mail. Pt is primarily concerned of her feet and LE's. Prior Treatments and Tests Has tried different orthotics by several podiatrists. [facility] issued an orthotic with high ankle support but she couldn't wear it because it wasn't soft. 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 Future Testing and Treatments Planned Go back to [facility] to make something soft and lifted at the arch. Treatment Goals Patient/Caregiver Goals Wants to stabilize foot ( strengthen) and work on movement of hips due to R knee going in and collapse of arch in R foot. Prior Functional Status Baseline Function- ADL's Independent Baseline Function- Mobility Independent Baseline Function- Recreation/Hobbies Riding upright ex bike. Does trampoline exs, Does ball and weight exercise. Baseline Function- Other Does yardwork. Current Functional Impairments (Reported) Functional Limitations- ADL's Walks more slowly because it hurts to move feet (quick rotational turns). Functional Limitations- Mobility/Gait Not able to walk or hike. Functional Limitations- Recreation/ Stopped doing gym classes ( Hobbies weights, stand up ex's: lunges , squats, moving left & right) Personal Factors Other Personal Factors That May Effect Trying to get R AFO and a more Therapy/Recovery comfortable plantar arch support. Stomach problems affecting bladder, which limits her ability to walk. PT-OP-C Subjective Start: 12/12/21 17:39 Freq: Status: Active Protocol: Document 01/09/22 11:21 LRN (Rec: 01/09/22 12:28 LRN [id number]) OP-PT Subjective Patient Comments Patient Comments Would like to not get the $500 knee brace but would like to try an open knee brace first. Not really having L knee pain today. PT-OP-D Balance Start: 12/12/21 17:39 Freq: Status: Active Protocol: Document 12/26/21 11:24 LRN (Rec: 12/26/21 12:35 LRN [id number]) Roth Balance Assessment Evaluation Sitting to Standing Ability Independent w/out Hands Unsupported Stance Safely- 2 minutes Sitting Unsupported, Feet on Floor Safely- 2 minutes Standing to Sitting Ability Safely, Minimal Hand Use Transfer Ability Safely, Minimal Hand Use Unsupported Stance- Eyes Closed Safely, 10 seconds Unsupported Stance- Eyes Open Independent, 1 minute Reaching Forward Standing Safely, 5 inches Pick- Up Object From Floor Independent/Safe Look Behind Shoulder - Standing Turns Sideways Only Turning 360 Degrees Turns slowly, but safely Unsupported Stance, Alternating Feet on (I)- 8 Steps in 20 secs Stair Unsupported Tandem Stance Assist to Step-15 seconds Unilateral Leg Stance Unable,assist to not fall Total Score Roth Total Score (out of 56 points) 44 Roth Impairment Rating 20 to 39% Impaired (Score 34- 44) PT-OP-E Functional Tests Start: 12/12/21 17:39 Freq: Status: Active Protocol: Document 12/26/21 11:24 LRN (Rec: 12/26/21 12:35 LRN [id number]) Functional Tests Timed Up and Go (TUG) Score 13 TUG Impairment Rating 20 to <40% Impaired (Score 12- 13) PT-OP-G Mobility & Gait Start: 12/12/21 17:39 Freq: Status: Active Protocol: Document 12/26/21 11:24 LRN (Rec: 12/26/21 12:35 LRN [id number]) OP Gait Assessment Gait Gait Assistance Required: Independent Able to Maintain Weight Bearing Status Yes During Gait Assistive Devices Assistive Device None Factors Limiting Gait Function Factors Limiting Gait Function Limited Range of Motion Comments Gait Comments Severe valgus of the R knee, and R foot pronation is the limiting factor in the pt's gait deviation. PT-OP-J Posture/Palpation/Skin Start: 12/12/21 17:39 Freq: Status: Active Protocol: Document 12/23/21 11:23 LRN (Rec: 12/23/21 12:22 LRN [id number]) Posture Evaluation Position Standing Head/C-Spine Posture Forward Head Knee Posture (L) Genu Valgus,(R) Genu Valgus Ankle/Foot Posture (R) Pronated,(R) Calcaneal Inversion Foot Arch (L) Low Arch,(R) No Arch Comments Posture Comments Severe forward head, R shoulder retracted, increased lordosis, Knee valgus angle is 27 deg's right, 5 deg's left. PT-OP-K Range of Motion Start: 12/12/21 17:39 Freq: Status: Active Protocol: Document 12/23/21 11:23 LRN (Rec: 12/23/21 12:22 LRN [id number]) Hip Goniometric Range of Motion Hip Right Passive Hip ROM WFL No Straight Leg Raise 80 Abduction 10 Internal Rotation 25 External Rotation 15 Comments Extension lacks 5 deg's Left Passive Hip ROM WFL Yes Straight Leg Raise 90 Abduction 16 Internal Rotation 10 External Rotation 0 Comments Extension lacks 3 deg's Knee Goniometric Range of Motion Knee Right Knee ROM WFL No Patient Position Supine Flexion Active (degrees) 125 Extension Active (degrees) 16 Left Knee ROM WFL No Patient Position Supine Flexion Active (degrees) 131 Extension Active (degrees) 5 Ankle and Foot Goniometric Range of Motion Ankle and Foot Right Active Dorsiflexion with Knee Extended 7 Plantarflexion 43 Inversion 35 Eversion 30 Left Active Dorsiflexion with Knee Extended 7 Plantarflexion 60 Inversion 40 Eversion 32 PT-OP-M Strength Start: 12/12/21 17:39 Freq: Status: Active Protocol: Document 12/23/21 11:23 LRN (Rec: 12/23/21 12:22 LR [id number]) Hip Strength Hip Manual Muscle Testing Right Flexion (L2) 5 Normal Extension (S1) 3 Fair Abduction 3- Fair- Adduction 5 Normal Left Flexion (L2) 5 Normal Extension (S1) 3 Fair Abduction 5 Normal Knee Strength Knee Manual Muscle Testing Right Flexion (S2) 3 Fair Extension (L3) 5 Normal Left Flexion (S2) 5 Normal Extension (L3) 5 Normal Ankle/Foot Strength Ankle and Foot Manual Muscle Testing Right Comments Generally 5/5 Left Comments Generally 5/5 PT-OP-Q Treatments Start: 12/12/21 17:39 Freq: Status: Active Protocol: Document 01/09/22 11:21 LRN (Rec: 01/09/22 12:28 LR [id number]) Therapeutic Exercises Supine Exercises Piriformis stretch Supine Exercise Name Piriformis stretch Side bilateral Reps/Minutes 50-60 H x 2 L, x 1 R Lateral Hip stretch Supine Exercise Name Lateral Hip stretch Side left Reps/Minutes 60 stretch x 2 Evans BKFO stretch Supine Exercise Name Evans BKFO stretch f/b active hip ER Reps/Minutes 2x Comments cuing to do active hip ER, not to do IR. Prone Exercises Hip Ext Prone Exercise Name Active Hip ext with ball at ankle for support Side bilateral Reps/Minutes 15x Comments Extra time needed to position for best tolerated position Sidelying Exercises Hip AD Sidelying Exercise Name Active Hip AD Side right Reps/Minutes 30x Comments Extra time needed to position for best tolerated position Hip AB Sidelying Exercise Name Active Hip AB Side bilateral Reps/Minutes 15x 2 Comments Extra time needed to position for best tolerated position Standing Exercises Posture training Standing Exercise Name Standing with toes on CARLITA and off CARLITA Side bilateral Reps/Minutes 12' Self-Care/Home Management Treatment Education Patient Education Home Exercise Program Activities Self-Care/Home Management Activities Issued & reviewed HEP: Lateral Hip & Piriformis stretch (knee to opp shldr) and written I/S for evans BKFO stretch (Frog stretch). PT-OP-T Assessment and Plan Start: 12/12/21 17:39 Freq: Status: Active Protocol: Document 01/09/22 11:21 LRN (Rec: 01/09/22 12:28 LRN [id number]) Physical Therapy Assessment Goals Three Impairment Improve hip mobility & strength to improve stability with gait Impairment LEFS is 48/80 (20-39% impaired , score 48-62) FAAM score is 52 (20-39% impaired, 50-66) Hip strength: AB is 3-/5 R, 5/ 5 L. Hip PROM (sup) in deg's: Ext is lacking 5 deg's R, lacking 3 deg's L; AB is 10 R, 16 L; IR is 25 R, 10 L, ER is 15 R, 0 L Short Term Goal (STG) Pt will be educated in a HEP of hip mobility (Ext, AB, IR, ER) and strengthening ex's (AB , AD, ext). (01/02/22: Added HEP: hip strengthening ex for AB/AD/Ext ) (01/09/22: HEP added: Hip ER, IR stretch) STG Duration 01/20/22 (01/09/22: Progressed ) Curtain Cutter Hand Goal (LTG) Improve strength and mobility of the hips with improved function per LEFS or FAAM score. LTG Duration 03/23/22 Two Impairment Improve knee strength & mobility to decrease R knee pain. Impairment Knee flexion - 3/5 R, 5/5 L; Extension is 5/5 bilaterally Knee AROM (sup) in deg's: 16- 125 right, 5-131 left. Short Term Goal (STG) Pt will be educated in a HEP of knee mobility (ext, R flex) and strengthening (R hamstring, medial>lateral) exercises. (01/01/22: Added R knee flex strengthening with TB) STG Duration 01/20/22 (01/02/22: Progressed) Curtain Cutter Hand Goal (LTG) Decrease R knee pain with gait with improved knee strength and external support of R arch support and/or offloading knee brace. (01/06/22: Pt is addressing her external R arch support issue through [facility]). LTG Duration 03/23/22 (01/06/22: Progressing) One Impairment Lacks appropriate self care program. Short Term Goal (STG) Assist pt in obtaining an offloading brace for the R knee. (01/02/22: Pt choosing not to obtain an offloaing brace at this time). (01/09/22: Pt wanting to try a less cumbersome brace of her choosing, regardless of recommendation) STG Duration 01/16/22 (01/09/22: NOT MET, pt wanting different brace) Curtain Cutter Hand Goal (LTG) Pt will be independent in a self care HEP to improve stability of the foot with strengthening exercise. (12/26/21: HEP: ankle TB strengthening issued) LTG Duration 03/23/22 (01/06/22: Pt is on an ankle HEP) Assessment Summary Assessment Good recall of standing posture ex with ball of foot elevated. Pt able to do hip stretches and strengthening without R knee pain. Pt reported pop at L hip during stretch. Pop was not audible. Physical Therapy Plan Frequency and Duration Frequency of Treatment 2x/Week Plan of Care Start Date 12/23/21 Plan of Care End Date 03/23/22 Next Visit Focus/Plan Next Note Type Treatment Note Next Visit Plan Will contact MD if pt is willing to use offloader knee brace. Decrease therapy to 1x/week when pt on HEP. Add ROM mobility HEP: hip ADD' s and hip flexors; evans knee ext (R>L) and R knee flexion. Add HEP: core strengthening and as tolerated also in standing (toe/heel raises). General conditioning, possible use of lift to deweight R foot.
--- NOTE | 2022-01-16 16:48 | PT.OTN ---
Current Diagnoses Other specified arthritis, right knee (01/16/22) Bilateral primary osteoarthritis of knee (01/16/22) Osteoarthritis of knee, unspecified (01/16/22) Primary osteoarthritis, right ankle and foot (01/16/22) Primary osteoarthritis, left ankle and foot (01/16/22) Valgus deformity, not elsewhere classified, left knee (01/16/22) Valgus deformity, not elsewhere classified, unspecified knee (01/16/22) Flat foot [pes planus] (acquired), right foot (01/16/22) Unspecified acquired deformity of right lower leg (01/16/22) Unspecified acquired deformity of left lower leg (01/16/22) Low back pain, unspecified (01/16/22) Congenital deformity of feet, unspecified, unspecified foot (01/16/22) Physical Therapy Treatment Note PT-OP-A Visit Information Start: 12/12/21 17:39 Freq: Status: Active Protocol: Document 01/16/22 13:03 LRN (Rec: 01/16/22 13:53 LRN [id number]) Out-Patient Physical Therapy Visit Information Visit Information Visit Type Treatment Note Visit Start Time 13:03 Visit Stop Time 13:52 Total Visit Minutes 49 Visit Number 6 Evaluation Information Evaluation Date 12/23/21 Precautions Precautions Arthritis, lumbar back pain, hypothyroid controlled with meds. 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 Can now control the knee because she built her own support. She feels because the L leg is crooked it caused problems with the R foot. No problem with R foot pain unless standing. She doesn't feel her back pain is problem currently. She states she has had a lot of back pain through her life because her back is curved. She was wearing a soft back brace she purchased ([employer] brace) that she is not sure she likes, so she is waiting for another one order in the mail. Pt is primarily concerned of her feet and LE's. Prior Treatments and Tests Has tried different orthotics by several podiatrists. [facility] issued an orthotic with high ankle support but she couldn't wear it because it wasn't soft. 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 Future Testing and Treatments Planned Go back to [facility] to make something soft and lifted at the arch. Treatment Goals Patient/Caregiver Goals Wants to stabilize foot ( strengthen) and work on movement of hips due to R knee going in and collapse of arch in R foot. Prior Functional Status Baseline Function- ADL's Independent Baseline Function- Mobility Independent Baseline Function- Recreation/Hobbies Riding upright ex bike. Does trampoline exs, Does ball and weight exercise. Baseline Function- Other Does yardwork. Current Functional Impairments (Reported) Functional Limitations- ADL's Walks more slowly because it hurts to move feet (quick rotational turns). Functional Limitations- Mobility/Gait Not able to walk or hike. Functional Limitations- Recreation/ Stopped doing gym classes ( Hobbies weights, stand up ex's: lunges , squats, moving left & right) Personal Factors Other Personal Factors That May Effect Trying to get R AFO and a more Therapy/Recovery comfortable plantar arch support. Stomach problems affecting bladder, which limits her ability to walk. PT-OP-C Subjective Start: 12/12/21 17:39 Freq: Status: Active Protocol: Document 01/16/22 13:03 LRN (Rec: 01/16/22 13:53 LRN [id number]) OP-PT Subjective Patient Comments Patient Comments Requests help with posture whilwe standing in slight ankle DF. Requests an ex to help strengthen C7T1 posterior aspect. PT-OP-D Balance Start: 12/12/21 17:39 Freq: Status: Active Protocol: Document 12/26/21 11:24 LRN (Rec: 12/26/21 12:35 LRN [id number]) Roth Balance Assessment Evaluation Sitting to Standing Ability Independent w/out Hands Unsupported Stance Safely- 2 minutes Sitting Unsupported, Feet on Floor Safely- 2 minutes Standing to Sitting Ability Safely, Minimal Hand Use Transfer Ability Safely, Minimal Hand Use Unsupported Stance- Eyes Closed Safely, 10 seconds Unsupported Stance- Eyes Open Independent, 1 minute Reaching Forward Standing Safely, 5 inches Pick- Up Object From Floor Independent/Safe Look Behind Shoulder - Standing Turns Sideways Only Turning 360 Degrees Turns slowly, but safely Unsupported Stance, Alternating Feet on (I)- 8 Steps in 20 secs Stair Unsupported Tandem Stance Assist to Step-15 seconds Unilateral Leg Stance Unable,assist to not fall Total Score Roth Total Score (out of 56 points) 44 Roth Impairment Rating 20 to 39% Impaired (Score 34- 44) PT-OP-E Functional Tests Start: 12/12/21 17:39 Freq: Status: Active Protocol: Document 12/26/21 11:24 LRN (Rec: 12/26/21 12:35 LRN [id number]) Functional Tests Timed Up and Go (TUG) Score 13 TUG Impairment Rating 20 to <40% Impaired (Score 12- 13) PT-OP-G Mobility & Gait Start: 12/12/21 17:39 Freq: Status: Active Protocol: Document 12/26/21 11:24 LRN (Rec: 12/26/21 12:35 LRN [id number]) OP Gait Assessment Gait Gait Assistance Required: Independent Able to Maintain Weight Bearing Status Yes During Gait Assistive Devices Assistive Device None Factors Limiting Gait Function Factors Limiting Gait Function Limited Range of Motion Comments Gait Comments Severe valgus of the R knee, and R foot pronation is the limiting factor in the pt's gait deviation. PT-OP-J Posture/Palpation/Skin Start: 12/12/21 17:39 Freq: Status: Active Protocol: Document 12/23/21 11:23 LRN (Rec: 12/23/21 12:22 LRN [id number]) Posture Evaluation Position Standing Head/C-Spine Posture Forward Head Knee Posture (L) Genu Valgus,(R) Genu Valgus Ankle/Foot Posture (R) Pronated,(R) Calcaneal Inversion Foot Arch (L) Low Arch,(R) No Arch Comments Posture Comments Severe forward head, R shoulder retracted, increased lordosis, Knee valgus angle is 27 deg's right, 5 deg's left. PT-OP-K Range of Motion Start: 12/12/21 17:39 Freq: Status: Active Protocol: Document 12/23/21 11:23 LRN (Rec: 12/23/21 12:22 LRN [id number]) Hip Goniometric Range of Motion Hip Right Passive Hip ROM WFL No Straight Leg Raise 80 Abduction 10 Internal Rotation 25 External Rotation 15 Comments Extension lacks 5 deg's Left Passive Hip ROM WFL Yes Straight Leg Raise 90 Abduction 16 Internal Rotation 10 External Rotation 0 Comments Extension lacks 3 deg's Knee Goniometric Range of Motion Knee Right Knee ROM WFL No Patient Position Supine Flexion Active (degrees) 125 Extension Active (degrees) 16 Left Knee ROM WFL No Patient Position Supine Flexion Active (degrees) 131 Extension Active (degrees) 5 Ankle and Foot Goniometric Range of Motion Ankle and Foot Right Active Dorsiflexion with Knee Extended 7 Plantarflexion 43 Inversion 35 Eversion 30 Left Active Dorsiflexion with Knee Extended 7 Plantarflexion 60 Inversion 40 Eversion 32 PT-OP-M Strength Start: 12/12/21 17:39 Freq: Status: Active Protocol: Document 12/23/21 11:23 LRN (Rec: 12/23/21 12:22 [facility] [id number]) Hip Strength Hip Manual Muscle Testing Right Flexion (L2) 5 Normal Extension (S1) 3 Fair Abduction 3- Fair- Adduction 5 Normal Left Flexion (L2) 5 Normal Extension (S1) 3 Fair Abduction 5 Normal Knee Strength Knee Manual Muscle Testing Right Flexion (S2) 3 Fair Extension (L3) 5 Normal Left Flexion (S2) 5 Normal Extension (L3) 5 Normal Ankle/Foot Strength Ankle and Foot Manual Muscle Testing Right Comments Generally 5/5 Left Comments Generally 5/5 PT-OP-Q Treatments Start: 12/12/21 17:39 Freq: Status: Active Protocol: Document 01/16/22 13:03 LRN (Rec: 01/16/22 13:53 [facility] [id number]) Therapeutic Exercises Supine Exercises Neck Elongation Supine Exercise Name Neck Elongation - 1 middle thick pillow Reps/Minutes 10 H, 6' Comments Cuing to lengthen neck, chest lift, back of neck moving back to plinth Sitting Exercises L hip IR stretch Sitting Exercise Name L hip IR stretch Side left Reps/Minutes 2' Knee flex strengthening Sitting Exercise Name Knee flex strengthening Side right Equipment Used LEv 2 TB Reps/Minutes 10x Knee ext stretch Sitting Exercise Name Knee ext stretch - heel on floor, knee straight for Quad sets Side right Reps/Minutes 2' Piriformis stretch Sitting Exercise Name Piriformis stretch - knee on table in fig 4 pattern Side bilateral Reps/Minutes 3' Hip AD stretches Sitting Exercise Name 1 leg on plinth, other knee bent, leaning towards bent knee if needed Side bilateral Reps/Minutes 8' Comments Pt getting hip AD stretch without need to lean. Cuing needed for posture Neck Elongation Sitting Exercise Name Neck Elongation Reps/Minutes 3' Comments Cuing with finger on top of head. Standing Exercises Posture training Standing Exercise Name Standing with toes on CARLITA and off CARLITA Side bilateral Reps/Minutes 10' Comments Multiple times needed to stand off/on CARLITA for postural awareness. Self-Care/Home Management Treatment Education Patient Education Posture Other Education Discussed proper posturing and ex to help maintain a better posturing. Activities Self-Care/Home Management Activities Issued handouts of proper posturing and HEP of hip stretching: hip AD stretch and Piriformis stretch, sitting L hip IR Hamstring stretch, and hamstring strengthening. Cervical neck elongation with C. retraction and sitting posture education. PT-OP-T Assessment and Plan Start: 12/12/21 17:39 Freq: Status: Active Protocol: Document 01/16/22 13:03 LRN (Rec: 01/16/22 13:53 LRN [id number]) Physical Therapy Assessment Goals Three Impairment Improve hip mobility & strength to improve stability with gait Impairment LEFS is 48/80 (20-39% impaired , score 48-62) FAAM score is 52 (20-39% impaired, 50-66) Hip strength: AB is 3-/5 R, 5/ 5 L. Hip PROM (sup) in deg's: Ext is lacking 5 deg's R, lacking 3 deg's L; AB is 10 R, 16 L; IR is 25 R, 10 L, ER is 15 R, 0 L Short Term Goal (STG) Pt will be educated in a HEP of hip mobility (Ext, AB, IR, ER) and strengthening ex's (AB , AD, ext). (01/02/22: Added HEP: hip strengthening ex for AB/AD/Ext ) (01/09/22: HEP added: Hip ER, IR stretch) (01/16/22: HEP added: Hip AB, IR, ER stretch) STG Duration 01/20/22 (01/16/22: Progressed ) Communication Electronic Technician Goal (LTG) Improve strength and mobility of the hips with improved function per LEFS or FAAM score. LTG Duration 03/23/22 Two Impairment Improve knee strength & mobility to decrease R knee pain. Impairment Knee flexion - 3/5 R, 5/5 L; Extension is 5/5 bilaterally Knee AROM (sup) in deg's: 16- 125 right, 5-131 left. Short Term Goal (STG) Pt will be educated in a HEP of knee mobility (ext, R flex) and strengthening (R hamstring, medial>lateral) exercises. (01/01/22: Added R knee flex strengthening with TB) (01/16/22: HEP issued for knee mobility ext and R knee flexion strengthening) STG Duration 01/20/22 (01/16/22: Progressed ) Communication Electronic Technician Goal (LTG) Decrease R knee pain with gait with improved knee strength and external support of R arch support and/or offloading knee brace. (01/06/22: Pt is addressing her external R arch support issue through [facility]). LTG Duration 03/23/22 (01/06/22: Progressing) One Impairment Lacks appropriate self care program. Short Term Goal (STG) Assist pt in obtaining an offloading brace for the R knee. (01/02/22: Pt choosing not to obtain an offloaing brace at this time). (01/09/22: Pt wanting to try a less cumbersome brace of her choosing, regardless of recommendation) STG Duration 01/16/22 (01/09/22: NOT MET, pt wanting different brace) Communication Electronic Technician Goal (LTG) Pt will be independent in a self care HEP to improve stability of the foot with strengthening exercise. (12/26/21: HEP: ankle TB strengthening issued) (01/16/22: HEP: hip Adductors, Piriformis, sitting L hip IR & hamstring (capo knee ext (R>L )) stretching and R knee flexion strengthening; Cervical neck elongation with C. retraction and sitting posture education. LTG Duration 03/23/22 (01/16/22: Progressed) Progress Towards Goals Progress Comments Progressed HEP Assessment Summary Assessment Progression onto her HEP has been slow due to need of answering pt's questions at start of therapy. Pt able to perform with repeated v cuing: HEP of hip Adductors, Piriformis, sitting L hip IR, & hamstring (capo knee ext (R>L )) stretching and R knee flexion strengthening. Much training needed for Cervical neck elongation with C. retraction and sitting posture education. Although pt has handouts she needs repetition for learning as appropriate for her age. Pt has no complaints of foot pain; therefore she doesn't appear to need a lift in R shoe to de -weight the foot. Physical Therapy Plan Frequency and Duration Frequency of Treatment 2x/Week Plan of Care Start Date 12/23/21 Plan of Care End Date 03/23/22 Next Visit Focus/Plan Next Note Type Treatment Note Next Visit Plan Will contact MD if pt is willing to use offloader knee brace. Decrease therapy to 1x/week when pt on HEP. Add ROM mobility HEP: R knee flexion stretch and hip flexor stretching. HEP: core strengthening and as tolerated also in standing (toe/heel raises). General conditioning.
--- NOTE | 2022-01-20 16:46 | PT.OTN ---
Current Diagnoses Other specified arthritis, right knee (01/20/22) Bilateral primary osteoarthritis of knee (01/20/22) Osteoarthritis of knee, unspecified (01/20/22) Primary osteoarthritis, right ankle and foot (01/20/22) Primary osteoarthritis, left ankle and foot (01/20/22) Valgus deformity, not elsewhere classified, left knee (01/20/22) Valgus deformity, not elsewhere classified, unspecified knee (01/20/22) Flat foot [pes planus] (acquired), right foot (01/20/22) Unspecified acquired deformity of right lower leg (01/20/22) Unspecified acquired deformity of left lower leg (01/20/22) Low back pain, unspecified (01/20/22) Congenital deformity of feet, unspecified, unspecified foot (01/20/22) Physical Therapy Treatment Note PT-OP-A Visit Information Start: 12/12/21 17:39 Freq: Status: Active Protocol: Document 01/20/22 14:37 LRN (Rec: 01/20/22 15:16 LRN [id number]) Out-Patient Physical Therapy Visit Information Visit Information Visit Type Treatment Note Visit Start Time 14:37 Visit Stop Time 15:15 Total Visit Minutes 38 Visit Number 7 Evaluation Information Evaluation Date 12/23/21 Precautions Precautions Arthritis, lumbar back pain, hypothyroid controlled with meds. 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 Can now control the knee because she built her own support. She feels because the L leg is crooked it caused problems with the R foot. No problem with R foot pain unless standing. She doesn't feel her back pain is problem currently. She states she has had a lot of back pain through her life because her back is curved. She was wearing a soft back brace she purchased ([employer] brace) that she is not sure she likes, so she is waiting for another one order in the mail. Pt is primarily concerned of her feet and LE's. Prior Treatments and Tests Has tried different orthotics by several podiatrists. [facility] issued an orthotic with high ankle support but she couldn't wear it because it wasn't soft. 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 Future Testing and Treatments Planned Go back to [facility] to make something soft and lifted at the arch. Treatment Goals Patient/Caregiver Goals Wants to stabilize foot ( strengthen) and work on movement of hips due to R knee going in and collapse of arch in R foot. Prior Functional Status Baseline Function- ADL's Independent Baseline Function- Mobility Independent Baseline Function- Recreation/Hobbies Riding upright ex bike. Does trampoline exs, Does ball and weight exercise. Baseline Function- Other Does yardwork. Current Functional Impairments (Reported) Functional Limitations- ADL's Walks more slowly because it hurts to move feet (quick rotational turns). Functional Limitations- Mobility/Gait Not able to walk or hike. Functional Limitations- Recreation/ Stopped doing gym classes ( Hobbies weights, stand up ex's: lunges , squats, moving left & right) Personal Factors Other Personal Factors That May Effect Trying to get R AFO and a more Therapy/Recovery comfortable plantar arch support. Stomach problems affecting bladder, which limits her ability to walk. PT-OP-C Subjective Start: 12/12/21 17:39 Freq: Status: Active Protocol: Document 01/20/22 14:37 LRN (Rec: 01/20/22 15:16 LRN [id number]) OP-PT Subjective Patient Comments Patient Comments Pt states when she fixes her L foot shoe support makes her walking better. States she is walking better since she has modified her orthotic. Offers to show. PT-OP-D Balance Start: 12/12/21 17:39 Freq: Status: Active Protocol: Document 12/26/21 11:24 LRN (Rec: 12/26/21 12:35 LRN [id number]) Roth Balance Assessment Evaluation Sitting to Standing Ability Independent w/out Hands Unsupported Stance Safely- 2 minutes Sitting Unsupported, Feet on Floor Safely- 2 minutes Standing to Sitting Ability Safely, Minimal Hand Use Transfer Ability Safely, Minimal Hand Use Unsupported Stance- Eyes Closed Safely, 10 seconds Unsupported Stance- Eyes Open Independent, 1 minute Reaching Forward Standing Safely, 5 inches Pick- Up Object From Floor Independent/Safe Look Behind Shoulder - Standing Turns Sideways Only Turning 360 Degrees Turns slowly, but safely Unsupported Stance, Alternating Feet on (I)- 8 Steps in 20 secs Stair Unsupported Tandem Stance Assist to Step-15 seconds Unilateral Leg Stance Unable,assist to not fall Total Score Roth Total Score (out of 56 points) 44 Roth Impairment Rating 20 to 39% Impaired (Score 34- 44) PT-OP-E Functional Tests Start: 12/12/21 17:39 Freq: Status: Active Protocol: Document 12/26/21 11:24 LRN (Rec: 12/26/21 12:35 LRN [id number]) Functional Tests Timed Up and Go (TUG) Score 13 TUG Impairment Rating 20 to <40% Impaired (Score 12- 13) PT-OP-G Mobility & Gait Start: 12/12/21 17:39 Freq: Status: Active Protocol: Document 12/26/21 11:24 LRN (Rec: 12/26/21 12:35 LRN [id number]) OP Gait Assessment Gait Gait Assistance Required: Independent Able to Maintain Weight Bearing Status Yes During Gait Assistive Devices Assistive Device None Factors Limiting Gait Function Factors Limiting Gait Function Limited Range of Motion Comments Gait Comments Severe valgus of the R knee, and R foot pronation is the limiting factor in the pt's gait deviation. PT-OP-J Posture/Palpation/Skin Start: 12/12/21 17:39 Freq: Status: Active Protocol: Document 12/23/21 11:23 LRN (Rec: 12/23/21 12:22 LRN [id number]) Posture Evaluation Position Standing Head/C-Spine Posture Forward Head Knee Posture (L) Genu Valgus,(R) Genu Valgus Ankle/Foot Posture (R) Pronated,(R) Calcaneal Inversion Foot Arch (L) Low Arch,(R) No Arch Comments Posture Comments Severe forward head, R shoulder retracted, increased lordosis, Knee valgus angle is 27 deg's right, 5 deg's left. PT-OP-K Range of Motion Start: 12/12/21 17:39 Freq: Status: Active Protocol: Document 12/23/21 11:23 LRN (Rec: 12/23/21 12:22 LRN [id number]) Hip Goniometric Range of Motion Hip Right Passive Hip ROM WFL No Straight Leg Raise 80 Abduction 10 Internal Rotation 25 External Rotation 15 Comments Extension lacks 5 deg's Left Passive Hip ROM WFL Yes Straight Leg Raise 90 Abduction 16 Internal Rotation 10 External Rotation 0 Comments Extension lacks 3 deg's Knee Goniometric Range of Motion Knee Right Knee ROM WFL No Patient Position Supine Flexion Active (degrees) 125 Extension Active (degrees) 16 Left Knee ROM WFL No Patient Position Supine Flexion Active (degrees) 131 Extension Active (degrees) 5 Ankle and Foot Goniometric Range of Motion Ankle and Foot Right Active Dorsiflexion with Knee Extended 7 Plantarflexion 43 Inversion 35 Eversion 30 Left Active Dorsiflexion with Knee Extended 7 Plantarflexion 60 Inversion 40 Eversion 32 PT-OP-M Strength Start: 12/12/21 17:39 Freq: Status: Active Protocol: Document 12/23/21 11:23 LRN (Rec: 12/23/21 12:22 LRN [id number]) Hip Strength Hip Manual Muscle Testing Right Flexion (L2) 5 Normal Extension (S1) 3 Fair Abduction 3- Fair- Adduction 5 Normal Left Flexion (L2) 5 Normal Extension (S1) 3 Fair Abduction 5 Normal Knee Strength Knee Manual Muscle Testing Right Flexion (S2) 3 Fair Extension (L3) 5 Normal Left Flexion (S2) 5 Normal Extension (L3) 5 Normal Ankle/Foot Strength Ankle and Foot Manual Muscle Testing Right Comments Generally 5/5 Left Comments Generally 5/5 PT-OP-Q Treatments Start: 12/12/21 17:39 Freq: Status: Active Protocol: Document 01/20/22 14:37 LRN (Rec: 01/20/22 15:16 LRN [id number]) Therapeutic Exercises Supine Exercises Ilipsoas Stretch Supine Exercise Name Ilipsoas Stretch- leg off the end of plinth Side bilateral Reps/Minutes 60 stretch f/b active stretch Comments Extra time for max tolerated position and for breaks during stretch. Sitting Exercises L hip IR stretch Sitting Exercise Name L hip IR stretch Side left Reps/Minutes 2' Comments Stretch followed by active hip IR. Knee flex strengthening Sitting Exercise Name Knee flex strengthening Side right Equipment Used Lev 2 TB Reps/Minutes 10x Knee ext stretch Sitting Exercise Name Knee ext stretch - heel on floor, knee straight for Quad sets Side right Reps/Minutes 2'x 2 Comments Stretch f/b active QS Piriformis stretch Sitting Exercise Name Piriformis stretch - knee on table in fig 4 pattern Side bilateral Reps/Minutes 3' Hip AD stretches Sitting Exercise Name 1 leg on plinth, other knee bent, leaning towards bent knee if needed Side bilateral Reps/Minutes 8' Comments Pt getting hip AD stretch without need to lean. Cuing needed for posture Neck Elongation Sitting Exercise Name Neck Elongation Reps/Minutes 3' Comments Cuing with finger on top of head. Knee flex Sitting Exercise Name ARROM of knee flexion Side right Equipment Used Lev2 TB Reps/Minutes 15x Self-Care/Home Management Treatment Education Patient Education Home Exercise Program Other Education Discussed and pt showing the self adjustment of the orthotic in the L foot and how it helps correct the gait of the L foot. Activities Self-Care/Home Management Activities Issued & reviewed HEP: Ilipsoas stretch PT-OP-T Assessment and Plan Start: 12/12/21 17:39 Freq: Status: Active Protocol: Document 01/20/22 14:37 LRN (Rec: 01/20/22 15:16 LRN [id number]) Physical Therapy Assessment Goals Three Impairment Improve hip mobility & strength to improve stability with gait Impairment LEFS is 48/80 (20-39% impaired , score 48-62) FAAM score is 52 (20-39% impaired, 50-66) Hip strength: AB is 3-/5 R, 5/ 5 L. Hip PROM (sup) in deg's: Ext is lacking 5 deg's R, lacking 3 deg's L; AB is 10 R, 16 L; IR is 25 R, 10 L, ER is 15 R, 0 L Short Term Goal (STG) Pt will be educated in a HEP of hip mobility (Ext, AB, IR, ER) and strengthening ex's (AB , AD, ext). (01/02/22: Added HEP: hip strengthening ex for AB/AD/Ext ) (01/09/22: HEP added: Hip ER, IR stretch) (01/16/22: HEP added: Hip AB, IR, ER stretch) (01/20/22: HEP added: Iliopsoas stretch) STG Duration 01/20/22 (01/20/22: Progressed ) Residential Goal (LTG) Improve strength and mobility of the hips with improved function per LEFS or FAAM score. LTG Duration 03/23/22 Two Impairment Improve knee strength & mobility to decrease R knee pain. Impairment Knee flexion - 3/5 R, 5/5 L; Extension is 5/5 bilaterally Knee AROM (sup) in deg's: 16- 125 right, 5-131 left. Short Term Goal (STG) Pt will be educated in a HEP of knee mobility (ext, R flex) and strengthening (R hamstring, medial>lateral) exercises. (01/01/22: Added R knee flex strengthening with TB) (01/16/22: HEP issued for knee mobility ext and R knee flexion strengthening) (01/20/22: HEP review of knee mobility and R knee flex strengthening) STG Duration 01/20/22 (01/20/22: MET GOAL) Residential Goal (LTG) Decrease R knee pain with gait with improved knee strength and external support of R arch support and/or offloading knee brace. (01/06/22: Pt is addressing her external R arch support issue through [facility]). LTG Duration 03/23/22 (01/06/22: Progressing) One Impairment Lacks appropriate self care program. Short Term Goal (STG) Assist pt in obtaining an offloading brace for the R knee. (01/02/22: Pt choosing not to obtain an offloaing brace at this time). 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 (12/26/21: HEP: ankle TB strengthening issued) (01/16/22: HEP: hip Adductors, Piriformis, sitting L hip IR & hamstring (capo knee ext (R>L )) stretching and R knee flexion strengthening; Cervical neck elongation with C. retraction and sitting posture education. LTG Duration 03/23/22 (01/16/22: Progressed) Progress Towards Goals Progress Comments Progressed HEP. Assessment Summary Assessment Pt walking with improved body posturing, with minimal trunk sway after self orthotic modification of putting a lift on the lateral side of the L shoe orthotic and an indent where the heel is. Pt did not ex at home the last issued HEP: therefore review was needed. Pt may need one more review of exercise. Pt is very limited in Iliopsoas mobility. She is having some difficulty doing neck elongation, possibly from her extreme forward head positioning, but pt shows some indication of being able to perform if she doesn't let her neck flexors overpower her deep neck flexors. Physical Therapy Plan Frequency and Duration Frequency of Treatment 2x/Week Plan of Care Start Date 12/23/21 Plan of Care End Date 03/23/22 Next Visit Focus/Plan Next Note Type Treatment Note Next Visit Plan Will contact MD if pt is willing to use offloader knee brace. Decrease therapy to 1x/week when pt on HEP. Add hip strengthening HEP (AB, AD, ext). HEP: core strengthening and as tolerated also in standing (toe/heel raises). General conditioning.
--- NOTE | 2022-01-29 17:00 | PT.OTN ---
Current Diagnoses Other specified arthritis, right knee (01/29/22) Bilateral primary osteoarthritis of knee (01/29/22) Osteoarthritis of knee, unspecified (01/29/22) Primary osteoarthritis, right ankle and foot (01/29/22) Primary osteoarthritis, left ankle and foot (01/29/22) Valgus deformity, not elsewhere classified, left knee (01/29/22) Valgus deformity, not elsewhere classified, unspecified knee (01/29/22) Flat foot [pes planus] (acquired), right foot (01/29/22) Unspecified acquired deformity of right lower leg (01/29/22) Unspecified acquired deformity of left lower leg (01/29/22) Low back pain, unspecified (01/29/22) Congenital deformity of feet, unspecified, unspecified foot (01/29/22) Physical Therapy Treatment Note PT-OP-A Visit Information Start: 12/12/21 17:39 Freq: Status: Active Protocol: Document 01/29/22 13:02 LRN (Rec: 01/29/22 13:54 LRN [id number]) Out-Patient Physical Therapy Visit Information Visit Information Visit Type Treatment Note Visit Start Time 13:04 Visit Stop Time 13:54 Total Visit Minutes 50 Visit Number 8 Evaluation Information Evaluation Date 12/23/21 Precautions Precautions Arthritis, lumbar back pain, hypothyroid controlled with meds. 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 Can now control the knee because she built her own support. She feels because the L leg is crooked it caused problems with the R foot. No problem with R foot pain unless standing. She doesn't feel her back pain is problem currently. She states she has had a lot of back pain through her life because her back is curved. She was wearing a soft back brace she purchased ([employer] brace) that she is not sure she likes, so she is waiting for another one order in the mail. Pt is primarily concerned of her feet and LE's. Prior Treatments and Tests Has tried different orthotics by several podiatrists. [facility] issued an orthotic with high ankle support but she couldn't wear it because it wasn't soft. 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 Future Testing and Treatments Planned Go back to [facility] to make something soft and lifted at the arch. Treatment Goals Patient/Caregiver Goals Wants to stabilize foot ( strengthen) and work on movement of hips due to R knee going in and collapse of arch in R foot. Prior Functional Status Baseline Function- ADL's Independent Baseline Function- Mobility Independent Baseline Function- Recreation/Hobbies Riding upright ex bike. Does trampoline exs, Does ball and weight exercise. Baseline Function- Other Does yardwork. Current Functional Impairments (Reported) Functional Limitations- ADL's Walks more slowly because it hurts to move feet (quick rotational turns). Functional Limitations- Mobility/Gait Not able to walk or hike. Functional Limitations- Recreation/ Stopped doing gym classes ( Hobbies weights, stand up ex's: lunges , squats, moving left & right) Personal Factors Other Personal Factors That May Effect Trying to get R AFO and a more Therapy/Recovery comfortable plantar arch support. Stomach problems affecting bladder, which limits her ability to walk. PT-OP-C Subjective Start: 12/12/21 17:39 Freq: Status: Active Protocol: Document 01/29/22 13:02 LRN (Rec: 01/29/22 13:54 LRN [id number]) OP-PT Subjective Patient Comments Patient Comments States her groin discomfort is gone. States she had a meeting with voltage tester and found the braces didn't work. She was told she needed a custom made brace. She plans on ordering a knee brace for herself online vs through the orthotic/prosthetic company. She also plans to order a soft pad for between the knees when sleeping. Walking in nothing hurts, but she feels walking is awkward. PT-OP-D Balance Start: 12/12/21 17:39 Freq: Status: Active Protocol: Document 01/29/22 13:02 LRN (Rec: 01/29/22 16:59 LRN [id number]) Balance Tests Single Limb Standing Single Limb- Right 6 secs Single Limb- Left 6 secs Tandem Tandem Standing L foot behind: 30 secs; R foot behind 6. PT-OP-E Functional Tests Start: 12/12/21 17:39 Freq: Status: Active Protocol: Document 12/26/21 11:24 LRN (Rec: 12/26/21 12:35 LRN [id number]) Functional Tests Timed Up and Go (TUG) Score 13 TUG Impairment Rating 20 to <40% Impaired (Score 12- 13) PT-OP-G Mobility & Gait Start: 12/12/21 17:39 Freq: Status: Active Protocol: Document 12/26/21 11:24 LRN (Rec: 12/26/21 12:35 LRN [id number]) OP Gait Assessment Gait Gait Assistance Required: Independent Able to Maintain Weight Bearing Status Yes During Gait Assistive Devices Assistive Device None Factors Limiting Gait Function Factors Limiting Gait Function Limited Range of Motion Comments Gait Comments Severe valgus of the R knee, and R foot pronation is the limiting factor in the pt's gait deviation. PT-OP-J Posture/Palpation/Skin Start: 12/12/21 17:39 Freq: Status: Active Protocol: Document 12/23/21 11:23 LRN (Rec: 12/23/21 12:22 LRN [id number]) Posture Evaluation Position Standing Head/C-Spine Posture Forward Head Knee Posture (L) Genu Valgus,(R) Genu Valgus Ankle/Foot Posture (R) Pronated,(R) Calcaneal Inversion Foot Arch (L) Low Arch,(R) No Arch Comments Posture Comments Severe forward head, R shoulder retracted, increased lordosis, Knee valgus angle is 27 deg's right, 5 deg's left. PT-OP-K Range of Motion Start: 12/12/21 17:39 Freq: Status: Active Protocol: Document 12/23/21 11:23 LRN (Rec: 12/23/21 12:22 LRN [id number]) Hip Goniometric Range of Motion Hip Right Passive Hip ROM WFL No Straight Leg Raise 80 Abduction 10 Internal Rotation 25 External Rotation 15 Comments Extension lacks 5 deg's Left Passive Hip ROM WFL Yes Straight Leg Raise 90 Abduction 16 Internal Rotation 10 External Rotation 0 Comments Extension lacks 3 deg's Knee Goniometric Range of Motion Knee Right Knee ROM WFL No Patient Position Supine Flexion Active (degrees) 125 Extension Active (degrees) 16 Left Knee ROM WFL No Patient Position Supine Flexion Active (degrees) 131 Extension Active (degrees) 5 Ankle and Foot Goniometric Range of Motion Ankle and Foot Right Active Dorsiflexion with Knee Extended 7 Plantarflexion 43 Inversion 35 Eversion 30 Left Active Dorsiflexion with Knee Extended 7 Plantarflexion 60 Inversion 40 Eversion 32 PT-OP-M Strength Start: 12/12/21 17:39 Freq: Status: Active Protocol: Document 12/23/21 11:23 LRN (Rec: 12/23/21 12:22 LRN [id number]) Hip Strength Hip Manual Muscle Testing Right Flexion (L2) 5 Normal Extension (S1) 3 Fair Abduction 3- Fair- Adduction 5 Normal Left Flexion (L2) 5 Normal Extension (S1) 3 Fair Abduction 5 Normal Knee Strength Knee Manual Muscle Testing Right Flexion (S2) 3 Fair Extension (L3) 5 Normal Left Flexion (S2) 5 Normal Extension (L3) 5 Normal Ankle/Foot Strength Ankle and Foot Manual Muscle Testing Right Comments Generally 5/5 Left Comments Generally 5/5 PT-OP-Q Treatments Start: 12/12/21 17:39 Freq: Status: Active Protocol: Document 01/29/22 13:02 LRN (Rec: 01/29/22 13:54 LRN [id number]) Therapeutic Exercises Supine Exercises Hip AD stretch Supine Exercise Name Sup V-stretch of LE's f/b active stretch Side bilateral Reps/Minutes 5' with 60 stretch and 10 active stretches Comments EXtra time to determine max tolerated postion Ilipsoas Stretch Supine Exercise Name Ilipsoas Stretch- leg off the end of plinth Side bilateral Reps/Minutes 60 stretch f/b active stretch Comments Extra time for max tolerated position and for breaks during stretch. Piriformis stretch Supine Exercise Name Piriformis stretch Side bilateral Reps/Minutes 50-60 H x 2 L, x 1 R Comments Extra time for proper positioning of ex. Lateral Hip stretch Supine Exercise Name Lateral Hip stretch Side left Reps/Minutes 60 stretch x 2 Prone Exercises Hip Ext Prone Exercise Name Active Hip ext with ball at ankle for support Side bilateral Reps/Minutes 10x 3 Comments Extra time needed to position for best tolerated position Sidelying Exercises Hip AD Sidelying Exercise Name Active Hip AD Side right Reps/Minutes 10x 2 Comments Extra time needed to position for best tolerated position Hip AB Sidelying Exercise Name Active Hip AB Side bilateral Reps/Minutes 15x 2 Comments Extra time needed to position for best tolerated position Sitting Exercises Hip Flexor stretch Sitting Exercise Name Lying down with leg off end of plinth to stretch Hip Flexor Side bilateral Reps/Minutes 1' each, 2x on L. Comments Extra time to determine best max tolerated stretch. Self-Care/Home Management Treatment Education Other Education Pt wanted to discuss what she was going to do with the knee brace for her R knee and other things she has purchased, asking for recommendation. PT-OP-T Assessment and Plan Start: 12/12/21 17:39 Freq: Status: Active Protocol: Document 01/29/22 13:02 LRN (Rec: 01/29/22 13:54 LRN [id number]) Physical Therapy Assessment Goals Three Impairment Improve hip mobility & strength to improve stability with gait Impairment LEFS is 48/80 (20-39% impaired , score 48-62) FAAM score is 52 (20-39% impaired, 50-66) Hip strength: AB is 3-/5 R, 5/ 5 L. Hip PROM (sup) in deg's: Ext is lacking 5 deg's R, lacking 3 deg's L; AB is 10 R, 16 L; IR is 25 R, 10 L, ER is 15 R, 0 L Short Term Goal (STG) Pt will be educated in a HEP of hip mobility (Ext, AB, IR, ER) and strengthening ex's (AB , AD, ext). (01/02/22: Added HEP: hip strengthening ex for AB/AD/Ext ) (01/09/22: HEP added: Hip ER, IR stretch) (01/16/22: HEP added: Hip AB, IR, ER stretch) (01/20/22: HEP added: Iliopsoas stretch) (01/29/22: hep ADDED: Ilipsoas and stretch to hip AD). STG Duration 01/20/22 (01/29/22: MET GOAL) Lacquer Sprayer Goal (LTG) Improve strength and mobility of the hips with improved function per LEFS or FAAM score. LTG Duration 03/23/22 Two Impairment Improve knee strength & mobility to decrease R knee pain. Impairment Knee flexion - 3/5 R, 5/5 L; Extension is 5/5 bilaterally Knee AROM (sup) in deg's: 16- 125 right, 5-131 left. Short Term Goal (STG) Pt will be educated in a HEP of knee mobility (ext, R flex) and strengthening (R hamstring, medial>lateral) exercises. (01/01/22: Added R knee flex strengthening with TB) (01/16/22: HEP issued for knee mobility ext and R knee flexion strengthening) (01/20/22: HEP review of knee mobility and R knee flex strengthening) STG Duration 01/20/22 (01/20/22: MET GOAL) Correction Goal (LTG) Decrease R knee pain with gait with improved knee strength and external support of R arch support and/or offloading knee brace. (01/06/22: Pt is addressing her external R arch support issue through [facility]). LTG Duration 03/23/22 (01/06/22: Progressing) One Impairment Lacks appropriate self care program. Short Term Goal (STG) Assist pt in obtaining an offloading brace for the R knee. (01/02/22: Pt choosing not to obtain an offloaing brace at this time). (01/09/22: Pt wanting to try a less cumbersome brace of her choosing, regardless of recommendation) STG Duration 01/16/22 (01/09/22: NOT MET, pt wanting different brace) Lacquer Sprayer Goal (LTG) Pt will be independent in a self care HEP to improve stability of the foot with strengthening exercise. (12/26/21: HEP: ankle TB strengthening issued) (01/16/22: HEP: hip Adductors, Piriformis, sitting L hip IR & hamstring (capo knee ext (R>L )) stretching and R knee flexion strengthening; Cervical neck elongation with C. retraction and sitting posture education. LTG Duration 03/23/22 (01/16/22: Progressed) Assessment Summary Assessment Iliopsoas is tighter L>R, and she is very tight with her hip AD's, noted on limited AB mobilty. Pt had difficulty getting into a comfortable position in supine for hip AD stretch due to onset of back pain from too much arching of back. Pt able to perform with less back pain when knees are bent. Physical Therapy Plan Frequency and Duration Frequency of Treatment 2x/Week Plan of Care Start Date 12/23/21 Plan of Care End Date 03/23/22 Next Visit Focus/Plan Next Note Type Treatment Note Next Visit Plan Will contact MD if pt is willing to use offloader knee brace. Decrease therapy to 1x/week when pt on HEP. Add hip strengthening HEP ( Glut Med, Adductors, extensors ). HEP: core strengthening and as tolerated also in standing (toe/heel raises). General conditioning.
--- NOTE | 2022-01-29 17:05 | PT.OTN ---
Current Diagnoses Other specified arthritis, right knee (01/29/22) Bilateral primary osteoarthritis of knee (01/29/22) Osteoarthritis of knee, unspecified (01/29/22) Primary osteoarthritis, right ankle and foot (01/29/22) Primary osteoarthritis, left ankle and foot (01/29/22) Valgus deformity, not elsewhere classified, left knee (01/29/22) Valgus deformity, not elsewhere classified, unspecified knee (01/29/22) Flat foot [pes planus] (acquired), right foot (01/29/22) Unspecified acquired deformity of right lower leg (01/29/22) Unspecified acquired deformity of left lower leg (01/29/22) Low back pain, unspecified (01/29/22) Congenital deformity of feet, unspecified, unspecified foot (01/29/22) Physical Therapy Treatment Note PT-OP-A Visit Information Start: 12/12/21 17:39 Freq: Status: Active Protocol: Document 01/29/22 13:02 LRN (Rec: 01/29/22 13:54 LRN [id number]) Out-Patient Physical Therapy Visit Information Visit Information Visit Type Treatment Note Visit Start Time 13:04 Visit Stop Time 13:54 Total Visit Minutes 50 Visit Number 8 Evaluation Information Evaluation Date 12/23/21 Precautions Precautions Arthritis, lumbar back pain, hypothyroid controlled with meds. 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 Can now control the knee because she built her own support. She feels because the L leg is crooked it caused problems with the R foot. No problem with R foot pain unless standing. She doesn't feel her back pain is problem currently. She states she has had a lot of back pain through her life because her back is curved. She was wearing a soft back brace she purchased ([employer] brace) that she is not sure she likes, so she is waiting for another one order in the mail. Pt is primarily concerned of her feet and LE's. Prior Treatments and Tests Has tried different orthotics by several podiatrists. [facility] issued an orthotic with high ankle support but she couldn't wear it because it wasn't soft. 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 Future Testing and Treatments Planned Go back to [facility] to make something soft and lifted at the arch. Treatment Goals Patient/Caregiver Goals Wants to stabilize foot ( strengthen) and work on movement of hips due to R knee going in and collapse of arch in R foot. Prior Functional Status Baseline Function- ADL's Independent Baseline Function- Mobility Independent Baseline Function- Recreation/Hobbies Riding upright ex bike. Does trampoline exs, Does ball and weight exercise. Baseline Function- Other Does yardwork. Current Functional Impairments (Reported) Functional Limitations- ADL's Walks more slowly because it hurts to move feet (quick rotational turns). Functional Limitations- Mobility/Gait Not able to walk or hike. Functional Limitations- Recreation/ Stopped doing gym classes ( Hobbies weights, stand up ex's: lunges , squats, moving left & right) Personal Factors Other Personal Factors That May Effect Trying to get R AFO and a more Therapy/Recovery comfortable plantar arch support. Stomach problems affecting bladder, which limits her ability to walk. PT-OP-C Subjective Start: 12/12/21 17:39 Freq: Status: Active Protocol: Document 01/29/22 13:02 LRN (Rec: 01/29/22 13:54 LRN [id number]) OP-PT Subjective Patient Comments Patient Comments States her groin discomfort is gone. States she had a meeting with [employer] and found the braces didn't work. She was told she needed a custom made brace. She plans on ordering a knee brace for herself online vs through the orthotic/prosthetic company. She also plans to order a soft pad for between the knees when sleeping. Walking in nothing hurts, but she feels walking is awkward. PT-OP-D Balance Start: 12/12/21 17:39 Freq: Status: Active Protocol: Document 01/29/22 13:02 LRN (Rec: 01/29/22 16:59 LRN [id number]) Balance Tests Single Limb Standing Single Limb- Right 6 secs Single Limb- Left 6 secs Tandem Tandem Standing L foot behind: 30 secs; R foot behind 6. PT-OP-E Functional Tests Start: 12/12/21 17:39 Freq: Status: Active Protocol: Document 12/26/21 11:24 LRN (Rec: 12/26/21 12:35 LRN [id number]) Functional Tests Timed Up and Go (TUG) Score 13 TUG Impairment Rating 20 to <40% Impaired (Score 12- 13) PT-OP-G Mobility & Gait Start: 12/12/21 17:39 Freq: Status: Active Protocol: Document 12/26/21 11:24 LRN (Rec: 12/26/21 12:35 LRN [id number]) OP Gait Assessment Gait Gait Assistance Required: Independent Able to Maintain Weight Bearing Status Yes During Gait Assistive Devices Assistive Device None Factors Limiting Gait Function Factors Limiting Gait Function Limited Range of Motion Comments Gait Comments Severe valgus of the R knee, and R foot pronation is the limiting factor in the pt's gait deviation. PT-OP-J Posture/Palpation/Skin Start: 12/12/21 17:39 Freq: Status: Active Protocol: Document 12/23/21 11:23 LRN (Rec: 12/23/21 12:22 LRN [id number]) Posture Evaluation Position Standing Head/C-Spine Posture Forward Head Knee Posture (L) Genu Valgus,(R) Genu Valgus Ankle/Foot Posture (R) Pronated,(R) Calcaneal Inversion Foot Arch (L) Low Arch,(R) No Arch Comments Posture Comments Severe forward head, R shoulder retracted, increased lordosis, Knee valgus angle is 27 deg's right, 5 deg's left. PT-OP-K Range of Motion Start: 12/12/21 17:39 Freq: Status: Active Protocol: Document 12/23/21 11:23 LRN (Rec: 12/23/21 12:22 LRN [id number]) Hip Goniometric Range of Motion Hip Right Passive Hip ROM WFL No Straight Leg Raise 80 Abduction 10 Internal Rotation 25 External Rotation 15 Comments Extension lacks 5 deg's Left Passive Hip ROM WFL Yes Straight Leg Raise 90 Abduction 16 Internal Rotation 10 External Rotation 0 Comments Extension lacks 3 deg's Knee Goniometric Range of Motion Knee Right Knee ROM WFL No Patient Position Supine Flexion Active (degrees) 125 Extension Active (degrees) 16 Left Knee ROM WFL No Patient Position Supine Flexion Active (degrees) 131 Extension Active (degrees) 5 Ankle and Foot Goniometric Range of Motion Ankle and Foot Right Active Dorsiflexion with Knee Extended 7 Plantarflexion 43 Inversion 35 Eversion 30 Left Active Dorsiflexion with Knee Extended 7 Plantarflexion 60 Inversion 40 Eversion 32 PT-OP-M Strength Start: 12/12/21 17:39 Freq: Status: Active Protocol: Document 12/23/21 11:23 LRN (Rec: 12/23/21 12:22 LRN [id number]) Hip Strength Hip Manual Muscle Testing Right Flexion (L2) 5 Normal Extension (S1) 3 Fair Abduction 3- Fair- Adduction 5 Normal Left Flexion (L2) 5 Normal Extension (S1) 3 Fair Abduction 5 Normal Knee Strength Knee Manual Muscle Testing Right Flexion (S2) 3 Fair Extension (L3) 5 Normal Left Flexion (S2) 5 Normal Extension (L3) 5 Normal Ankle/Foot Strength Ankle and Foot Manual Muscle Testing Right Comments Generally 5/5 Left Comments Generally 5/5 PT-OP-Q Treatments Start: 12/12/21 17:39 Freq: Status: Active Protocol: Document 01/29/22 13:02 LRN (Rec: 01/29/22 13:54 LRN [id number]) Therapeutic Exercises Supine Exercises Hip AD stretch Supine Exercise Name Sup V-stretch of LE's f/b active stretch Side bilateral Reps/Minutes 5' with 60 stretch and 10 active stretches Comments EXtra time to determine max tolerated postion Ilipsoas Stretch Supine Exercise Name Ilipsoas Stretch- leg off the end of plinth Side bilateral Reps/Minutes 60 stretch f/b active stretch Comments Extra time for max tolerated position and for breaks during stretch. Piriformis stretch Supine Exercise Name Piriformis stretch Side bilateral Reps/Minutes 50-60 H x 2 L, x 1 R Comments Extra time for proper positioning of ex. Lateral Hip stretch Supine Exercise Name Lateral Hip stretch Side left Reps/Minutes 60 stretch x 2 Prone Exercises Hip Ext Prone Exercise Name Active Hip ext with ball at ankle for support Side bilateral Reps/Minutes 10x 3 Comments Extra time needed to position for best tolerated position Sidelying Exercises Hip AD Sidelying Exercise Name Active Hip AD Side right Reps/Minutes 10x 2 Comments Extra time needed to position for best tolerated position Hip AB Sidelying Exercise Name Active Hip AB Side bilateral Reps/Minutes 15x 2 Comments Extra time needed to position for best tolerated position Sitting Exercises Hip Flexor stretch Sitting Exercise Name Lying down with leg off end of plinth to stretch Hip Flexor Side bilateral Reps/Minutes 1' each, 2x on L. Comments Extra time to determine best max tolerated stretch. Self-Care/Home Management Treatment Education Patient Education Home Exercise Program Other Education Pt wanted to discuss what she was going to do with the knee brace for her R knee and other things she has purchased, asking for recommendation. Activities Self-Care/Home Management Activities Issued & reviewed HEP: Hip AD stretching in supine & supine with feet on wall. PT-OP-T Assessment and Plan Start: 12/12/21 17:39 Freq: Status: Active Protocol: Document 01/29/22 13:02 LRN (Rec: 01/29/22 13:54 LRN [id number]) Physical Therapy Assessment Goals Three Impairment Improve hip mobility & strength to improve stability with gait Impairment LEFS is 48/80 (20-39% impaired , score 48-62) FAAM score is 52 (20-39% impaired, 50-66) Hip strength: AB is 3-/5 R, 5/ 5 L. Hip PROM (sup) in deg's: Ext is lacking 5 deg's R, lacking 3 deg's L; AB is 10 R, 16 L; IR is 25 R, 10 L, ER is 15 R, 0 L Short Term Goal (STG) Pt will be educated in a HEP of hip mobility (Ext, AB, IR, ER) and strengthening ex's (AB , AD, ext). (01/02/22: Added HEP: hip strengthening ex for AB/AD/Ext ) (01/09/22: HEP added: Hip ER, IR stretch) (01/16/22: HEP added: Hip AB, IR, ER stretch) (01/20/22: HEP added: Iliopsoas stretch) (01/29/22: hep ADDED: Ilipsoas and stretch to hip AD). STG Duration 01/20/22 (01/29/22: MET GOAL) Nursing Clerk Goal (LTG) Improve strength and mobility of the hips with improved function per LEFS or FAAM score. LTG Duration 03/23/22 Two Impairment Improve knee strength & mobility to decrease R knee pain. Impairment Knee flexion - 3/5 R, 5/5 L; Extension is 5/5 bilaterally Knee AROM (sup) in deg's: 16- 125 right, 5-131 left. Short Term Goal (STG) Pt will be educated in a HEP of knee mobility (ext, R flex) and strengthening (R hamstring, medial>lateral) exercises. (01/01/22: Added R knee flex strengthening with TB) (01/16/22: HEP issued for knee mobility ext and R knee flexion strengthening) (01/20/22: HEP review of knee mobility and R knee flex strengthening) STG Duration 01/20/22 (01/20/22: MET GOAL) Nursing Clerk Goal (LTG) Decrease R knee pain with gait with improved knee strength and external support of R arch support and/or offloading knee brace. (01/06/22: Pt is addressing her external R arch support issue through [facility]). LTG Duration 03/23/22 (01/06/22: Progressing) One Impairment Lacks appropriate self care program. Short Term Goal (STG) Assist pt in obtaining an offloading brace for the R knee. (01/02/22: Pt choosing not to obtain an offloaing brace at this time). (01/09/22: Pt wanting to try a less cumbersome brace of her choosing, regardless of recommendation) STG Duration 01/16/22 (01/09/22: NOT MET, pt wanting different brace) Shelter Goal (LTG) Pt will be independent in a self care HEP to improve stability of the foot with strengthening exercise. (12/26/21: HEP: ankle TB strengthening issued) (01/16/22: HEP: hip Adductors, Piriformis, sitting L hip IR & hamstring (capo knee ext (R>L )) stretching and R knee flexion strengthening; Cervical neck elongation with C. retraction and sitting posture education. LTG Duration 03/23/22 (01/16/22: Progressed) Assessment Summary Assessment Iliopsoas is tighter L>R, and she is very tight with her hip AD's, noted on limited AB mobilty. Pt had difficulty getting into a comfortable position in supine for hip AD stretch due to onset of back pain from too much arching of back. Pt able to perform with less back pain when knees are bent. Physical Therapy Plan Frequency and Duration Frequency of Treatment 2x/Week Plan of Care Start Date 12/23/21 Plan of Care End Date 03/23/22 Next Visit Focus/Plan Next Note Type Treatment Note Next Visit Plan Will contact MD if pt is willing to use offloader knee brace. Decrease therapy to 1x/week when pt on HEP. Add hip strengthening HEP ( Glut Med, Adductors, extensors ). HEP: core strengthening and as tolerated also in standing (toe/heel raises). General conditioning.
--- NOTE | 2022-06-28 16:43 | PT.OPDS ---
Current Diagnoses Bilateral primary osteoarthritis of knee (01/29/22) Osteoarthritis of knee, unspecified (01/29/22) Primary osteoarthritis, right ankle and foot (01/29/22) Primary osteoarthritis, left ankle and foot (01/29/22) Valgus deformity, not elsewhere classified, left knee (01/29/22) Valgus deformity, not elsewhere classified, unspecified knee (01/29/22) Flat foot [pes planus] (acquired), right foot (01/29/22) Unspecified acquired deformity of right lower leg (01/29/22) Unspecified acquired deformity of left lower leg (01/29/22) Low back pain, unspecified (01/29/22) Visit Care Team Role Provider Type Sabrina Garcia PA-C Referring Provider Non-Staff Specialty: Medical Address: [address] [place] [address], [id number] Email: Leonardo Villafuerte DO Primary Care Provider Non-Staff Specialty: Family Practice Address: [address] [place] [address], [id number] Email: Adin Mcqueen MD Family Provider Physician Specialty: Internal Medicine Address: [address] [place] [address], [address], [address] Email: [email or web address] Comer Attending Provider Non-Staff Specialty: Family Practice Address: [address] [place] [address], [facility] Email: Visit Number Visit Number 8 Discharge Summary PT-OP-B Current Condition Start: 12/12/21 17:39 Freq: Status: Active Protocol: Document 12/23/21 11:23 LRN (Rec: 12/23/21 12:22 LRN [id number]) Current Condition History of Current Condition Onset Date 2 yrs ago Current Complaints Blister/callus on 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 Can now control the knee because she built her own support. She feels because the L leg is crooked it caused problems with the R foot. No problem with R foot pain unless standing. She doesn't feel her back pain is problem currently. She states she has had a lot of back pain through her life because her back is curved. She was wearing a soft back brace she purchased ([employer] soft brace) that she is not sure she likes, so she is waiting for another one order in the mail. Pt is primarily concerned of her feet and LE's. Prior Treatments and Tests Has tried different orthotics by several podiatrists. [facility] issued an orthotic with high ankle support but she couldn't wear it because it wasn't soft. 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 Future Testing and Treatments Planned Go back to [facility] to make something soft and lifted at the arch. Treatment Goals Patient/Caregiver Goals Wants to stabilize foot ( strengthen) and work on movement of hips due to R knee going in and collapse of arch in R foot. Prior Functional Status Baseline Function- ADL's Independent Baseline Function- Mobility Independent Baseline Function- Recreation/Hobbies Riding upright ex bike. Does trampoline exs, Does ball and weight exercise. Baseline Function- Other Does yardwork. Current Functional Impairments (Reported) Functional Limitations- ADL's Walks more slowly because it hurts to move feet (quick rotational turns). Functional Limitations- Mobility/Gait Not able to walk or hike. Functional Limitations- Recreation/ Stopped doing gym classes ( Hobbies weights, stand up ex's: lunges , squats, moving left & right) Personal Factors Other Personal Factors That May Effect Trying to get R AFO and a more Therapy/Recovery comfortable plantar arch support. Stomach problems affecting bladder, which limits her ability to walk. PT-OP-C Subjective Start: 12/12/21 17:39 Freq: Status: Active Protocol: Document 01/29/22 13:02 LRN (Rec: 01/29/22 13:54 LRN [id number]) OP-PT Subjective Patient Comments Patient Comments States her groin discomfort is gone. States she had a meeting with [employer] and found the braces didn't work. She was told she needed a custom made brace. She plans on ordering a knee brace for herself online vs through the orthotic/prosthetic company. She also plans to order a soft pad for between the knees when sleeping. Walking in nothing hurts, but she feels walking is awkward. PT-OP-D Balance Start: 12/12/21 17:39 Freq: Status: Active Protocol: Document 01/29/22 13:02 LRN (Rec: 01/29/22 16:59 LRN [id number]) Balance Tests Single Limb Standing Single Limb- Right 6 secs Single Limb- Left 6 secs Tandem Tandem Standing L foot behind: 30 secs; R foot behind 6. PT-OP-E Functional Tests Start: 12/12/21 17:39 Freq: Status: Active Protocol: Document 12/26/21 11:24 LRN (Rec: 12/26/21 12:35 LRN [id number]) Functional Tests Timed Up and Go (TUG) Score 13 TUG Impairment Rating 20 to <40% Impaired (Score 12- 13) PT-OP-G Mobility & Gait Start: 12/12/21 17:39 Freq: Status: Active Protocol: Document 12/26/21 11:24 LRN (Rec: 12/26/21 12:35 LRN [id number]) OP Gait Assessment Gait Gait Assistance Required: Independent Able to Maintain Weight Bearing Status Yes During Gait Assistive Devices Assistive Device None Factors Limiting Gait Function Factors Limiting Gait Function Limited Range of Motion Comments Gait Comments Severe valgus of the R knee, and R foot pronation is the limiting factor in the pt's gait deviation. PT-OP-J Posture/Palpation/Skin Start: 12/12/21 17:39 Freq: Status: Active Protocol: Document 12/23/21 11:23 LRN (Rec: 12/23/21 12:22 LRN [id number]) Posture Evaluation Position Standing Head/C-Spine Posture Forward Head Knee Posture (L) Genu Valgus,(R) Genu Valgus Ankle/Foot Posture (R) Pronated,(R) Calcaneal Inversion Foot Arch (L) Low Arch,(R) No Arch Comments Posture Comments Severe forward head, R shoulder retracted, increased lordosis, Knee valgus angle is 27 deg's right, 5 deg's left. PT-OP-K Range of Motion Start: 12/12/21 17:39 Freq: Status: Active Protocol: Document 12/23/21 11:23 LRN (Rec: 12/23/21 12:22 LRN [id number]) Hip Goniometric Range of Motion Hip Right Passive Hip ROM WFL No Straight Leg Raise 80 Abduction 10 Internal Rotation 25 External Rotation 15 Comments Extension lacks 5 deg's Left Passive Hip ROM WFL Yes Straight Leg Raise 90 Abduction 16 Internal Rotation 10 External Rotation 0 Comments Extension lacks 3 deg's Knee Goniometric Range of Motion Knee Right Knee ROM WFL No Patient Position Supine Flexion Active (degrees) 125 Extension Active (degrees) 16 Left Knee ROM WFL No Patient Position Supine Flexion Active (degrees) 131 Extension Active (degrees) 5 Ankle and Foot Goniometric Range of Motion Ankle and Foot Right Active Dorsiflexion with Knee Extended 7 Plantarflexion 43 Inversion 35 Eversion 30 Left Active Dorsiflexion with Knee Extended 7 Plantarflexion 60 Inversion 40 Eversion 32 PT-OP-M Strength Start: 12/12/21 17:39 Freq: Status: Active Protocol: Document 12/23/21 11:23 LRN (Rec: 12/23/21 12:22 LRN [id number]) Hip Strength Hip Manual Muscle Testing Right Flexion (L2) 5 Normal Extension (S1) 3 Fair Abduction 3- Fair- Adduction 5 Normal Left Flexion (L2) 5 Normal Extension (S1) 3 Fair Abduction 5 Normal Knee Strength Knee Manual Muscle Testing Right Flexion (S2) 3 Fair Extension (L3) 5 Normal Left Flexion (S2) 5 Normal Extension (L3) 5 Normal Ankle/Foot Strength Ankle and Foot Manual Muscle Testing Right Comments Generally 5/5 Left Comments Generally 5/5 PT-OP-T Assessment and Plan Start: 12/12/21 17:39 Freq: Status: Active Protocol: Document 06/28/22 14:40 LRN (Rec: 06/28/22 14:49 LRN [id number]) Physical Therapy Assessment Goals Three Impairment Improve hip mobility & strength to improve stability with gait Impairment LEFS is 48/80 (20-39% impaired , score 48-62) FAAM score is 52 (20-39% impaired, 50-66) Hip strength: AB is 3-/5 R, 5/ 5 L. Hip PROM (sup) in deg's: Ext is lacking 5 deg's R, lacking 3 deg's L; AB is 10 R, 16 L; IR is 25 R, 10 L, ER is 15 R, 0 L Short Term Goal (STG) Pt will be educated in a HEP of hip mobility (Ext, AB, IR, ER) and strengthening ex's (AB , AD, ext). (01/02/22: Added HEP: hip strengthening ex for AB/AD/Ext ) (01/09/22: HEP added: Hip ER, IR stretch) (01/16/22: HEP added: Hip AB, IR, ER stretch) (01/20/22: HEP added: Iliopsoas stretch) (01/29/22: hep ADDED: Ilipsoas and stretch to hip AD). STG Duration 01/20/22 (01/29/22: MET GOAL) Half-Way Goal (LTG) Improve strength and mobility of the hips with improved function per LEFS or FAAM score. LTG Duration 03/23/22 (06/28/22: NOT MET GOAL, pt unavailable for final assessment) Two Impairment Improve knee strength & mobility to decrease R knee pain. Impairment Knee flexion - 3/5 R, 5/5 L; Extension is 5/5 bilaterally Knee AROM (sup) in deg's: 16- 125 right, 5-131 left. Short Term Goal (STG) Pt will be educated in a HEP of knee mobility (ext, R flex) and strengthening (R hamstring, medial>lateral) exercises. (01/01/22: Added R knee flex strengthening with TB) (01/16/22: HEP issued for knee mobility ext and R knee flexion strengthening) (01/20/22: HEP review of knee mobility and R knee flex strengthening) STG Duration 01/20/22 (01/20/22: MET GOAL) Overnight Houseperson Goal (LTG) Decrease R knee pain with gait with improved knee strength and external support of R arch support and/or offloading knee brace. (01/06/22: Pt is addressing her external R arch support issue through [facility]). LTG Duration 03/23/22 (01/06/22: Progressing) (06/28/22: NOT MET GOAL) One Impairment Lacks appropriate self care program. Short Term Goal (STG) Assist pt in obtaining an offloading brace for the R knee. (01/02/22: Pt choosing not to obtain an offloaing brace at this time). (01/09/22: Pt wanting to try a less cumbersome brace of her choosing, regardless of recommendation) STG Duration 01/16/22 (01/09/22: NOT MET, pt wanting different brace) Half-Way Goal (LTG) Pt will be independent in a self care HEP to improve stability of the foot with strengthening exercise. (12/26/21: HEP: ankle TB strengthening issued) (01/16/22: HEP: hip Adductors, Piriformis, sitting L hip IR & hamstring (capo knee ext (R>L )) stretching and R knee flexion strengthening; Cervical neck elongation with C. retraction and sitting posture education. LTG Duration 03/23/22 (01/16/22: Progressed) (06/28/22: NOT MET GOAL) Assessment Summary Assessment Pt was last seen 01/29/22. At that time she demonstrated soft tissue asymmetry in her hip muscles L>R, and mechanical back pain in supine from excessive lumbar lordosis. The pt cancelled her last visit and failed to make any follow up appointments; therefore the pt is being discharged due to lack of attendance. Physical Therapy Plan Discharge Physical Therapy Discharge Reasons No Longer Attending PT Discharge Comments Thank you for your referral. The pt will need a new referral to return to physical therapy.
== END 2022-07-08 08:52 | disposition home or self-care (01) ==
LOC: PHYS 13:00
PROVIDERS: Family Provider Internal Medicine; PCP Family Medicine; Referring Provider Physician Assistant; Visit Provider Nurse Practitioner Family
DX: M21.069 Valgus deformity, not elsewhere classified, unspecified knee (principal); M17.9 Osteoarthritis of knee, unspecified; M54.50 Low back pain, unspecified; M21.41 Flat foot [pes planus] (acquired), right foot; M21.961 Unspecified acquired deformity of right lower leg; M21.962 Unspecified acquired deformity of left lower leg; M19.071 Primary osteoarthritis, right ankle and foot; M19.072 Primary osteoarthritis, left ankle and foot; M17.0 Bilateral primary osteoarthritis of knee; M21.062 Valgus deformity, not elsewhere classified, left knee
CPT/HCPCS: 97110; 97112; 97162; 97530; 97535

== ENCOUNTER → 2022-11-18 12:40 | Outpatient (CLI) | payer MEDICARE, OTHER, SELFPAY ==
--- NOTE | 2022-11-18 12:42 | DI.RAD.S_ITS ---
PROCEDURE: XR KNEE RT 3V INDICATIONS: RIGHT KNEE PAIN TECHNIQUE: 3 views of the knee were acquired. COMPARISON: [facility], , XR KNEE RT 3V, 11/15/2019, 15:10. [facility], , XR KNEE LT 3V, 11/15/2019, 15:10. FINDINGS: Bones: No fractures or dislocations. Moderate-severe tricompartmental degenerative changes. Soft tissues: Possible joint effusion. No suspicious soft tissue calcifications. IMPRESSION: No acute fracture identified. Tricompartmental degenerative changes of the knee. Possible nonspecific knee effusion. Dictated by: Jimenez Lewis M.D. on 11/18/2022 at 15:39 Approved by: Jimenez Lewis M.D. on 11/18/2022 at 15:40
--- NOTE | 2022-11-18 12:42 | DI.RAD.S_ITS ---
PROCEDURE: XR FOOT LT MIN 3V INDICATIONS: LEFT FOOT PAIN TECHNIQUE: 3 views of the foot were acquired. COMPARISON: [facility], CR, XR FOOT LT MIN 3V, 11/15/2019, 15:19. [facility], CR, XR FOOT RT MIN 3V, 11/15/2019, 15:18. FINDINGS: Bones: No acute fractures or dislocations. Mild 1st MTP joint degenerative changes, scattered interphalangeal joint degenerative changes and polyarticular midfoot degeneration. Soft tissues: No tibiotalar joint effusion. IMPRESSION: No acute osseous abnormality. Polyarticular degenerative changes are present. If symptoms persist, follow-up radiographs and/or CT or MRI may be helpful for further evaluation. Dictated by: Jimenez Lewis M.D. on 11/18/2022 at 15:28 Approved by: Jimenez Lewis M.D. on 11/18/2022 at 15:34
--- NOTE | 2022-11-18 12:42 | DI.RAD.S_ITS ---
PROCEDURE: XR KNEE LT 3V INDICATIONS: LEFT KNEE PAIN TECHNIQUE: 3 views of the knee were acquired. COMPARISON: [facility], , XR KNEE LT 3V, 11/15/2019, 15:10. FINDINGS: Bones: No fractures or dislocations. Mild tricompartmental degenerative changes. Soft tissues: Possible small joint effusion. No suspicious soft tissue calcifications. IMPRESSION: 1. No acute fracture identified. 2. Degenerative changes of the knee are present. 3. Possible small nonspecific knee effusion. Dictated by: Jimenez Lewis M.D. on 11/18/2022 at 15:34 Approved by: Jimenez Lewis M.D. on 11/18/2022 at 15:36
--- NOTE | 2022-11-18 12:42 | DI.RAD.S_ITS ---
PROCEDURE: XR FOOT RT MIN 3V INDICATIONS: RIGHT FOOT PAIN TECHNIQUE: 3 views of the foot were acquired. COMPARISON: [facility], CR, XR FOOT LT MIN 3V, 11/18/2022, 12:44. [facility], CR, XR FOOT LT MIN 3V, 11/15/2019, 15:19. [facility], CR, XR FOOT RT MIN 3V, 11/15/2019, 15:18. FINDINGS: Bones: No acute fracture dislocation identified. Degenerative changes present at the 1st MTP joint, multiple midfoot articulations, and scattered interphalangeal joints. Soft tissues: No tibiotalar joint effusion. IMPRESSION: No acute fracture identified. Polyarticular degenerative changes of the foot present as before. If symptoms persist, follow-up radiographs and/or CT or MRI may be helpful for further evaluation. Dictated by: Jimenez Lewis M.D. on 11/18/2022 at 15:36 Approved by: Jimenez Lewis M.D. on 11/18/2022 at 15:38
--- NOTE | 2022-11-18 12:42 | DI.RAD.S_ITS ---
PROCEDURE: XR LUMBAR SPINE MIN 4V INDICATIONS: LOW BACK PAIN TECHNIQUE: 5 views of the lumbar spine were acquired, including bilateral oblique views. COMPARISON: [facility], , CT KUB, 06/23/2006, 11:37. FINDINGS: Bones: 5 nonrib-bearing vertebrae are present. No definite pars defects identified on oblique images. Suspect mild-moderate multilevel bony neural foraminal narrowing. Moderate-severe multilevel degenerative changes with disc height loss, endplate spurring, and facet arthropathy. No lumbar vertebral body compression fracture visualized. 3 mm anterolisthesis L4 on L5, 2 mm retrolisthesis L3 on L4, 4 mm retrolisthesis L1 on L2. Severe degenerative changes of both hips, left worse than right. Soft tissues: Overlying bowel gas pattern is normal. No suspicious soft tissue calcifications. IMPRESSION: 1. Multilevel degenerative changes of the lumbar spine. 2. Severe degenerative changes of both hips. Dictated by: Jimenez Lewis M.D. on 11/18/2022 at 15:23 Approved by: Jimenez Lewis M.D. on 11/18/2022 at 15:28
== END ==
PROVIDERS: Family Provider Internal Medicine; PCP Family Medicine; Referring Provider Physical Medicine & Rehabilitation; Visit Provider Physical Medicine & Rehabilitation
DX: M47.816 Spondylosis without myelopathy or radiculopathy, lumbar region (principal); M47.817 Spondylosis without myelopathy or radiculopathy, lumbosacral region; M16.0 Bilateral primary osteoarthritis of hip; M19.071 Primary osteoarthritis, right ankle and foot; M19.072 Primary osteoarthritis, left ankle and foot; M17.11 Unilateral primary osteoarthritis, right knee; M48.061 Spinal stenosis, lumbar region without neurogenic claudication; M54.50 Low back pain, unspecified; M25.562 Pain in left knee; M25.561 Pain in right knee; M79.671 Pain in right foot; M79.672 Pain in left foot
CPT/HCPCS: 72110; 73562; 73630; 99215

== ENCOUNTER → 2023-12-31 12:50 | Outpatient (CLI) | payer MEDICARE, OTHER, SELFPAY | PROVIDERS: Family Provider Internal Medicine; PCP Family Medicine; Referring Provider Family Medicine; Visit Provider Family Medicine | DX: Z12.11 Encounter for screening for malignant neoplasm of colon (principal) | CPT/HCPCS: 82274 ==